=== PATIENT | male | born 1960 | race Two or more races ===

== ENCOUNTER 2024-01-13 15:14 | Inpatient (IN) ==
[2024-01-13] MEDS: SODIUM CHLORIDE 0.9% 1,000 ML IV STA (15:39)
[2024-01-13] MEDS: ACETAMINOPHEN 1,000 MG/100 ML VIAL IV STA (15:39)
[2024-01-13 15:48] LABS: iSTAT Creatinine 1.3 mg/dl (0.6-1.3); iSTAT Hemoglobin 13.3 g/dl (14.0-18.0); iSTAT Ionized Calcium 0.98 mmol/l (1.12-1.32)
--- NOTE | 2024-01-13 15:50 | Emergency Department Note ---
Impression & Plan Acute cholecystitis, Abdominal pain, Sepsis ED Provider Note Provider: Grzegorz Li MD DATE OF SERVICE: 01/13/2024 CHIEF COMPLAINT: Abdominal pain, decreased intake and output HISTORY OF PRESENT ILLNESS: Patient is a 63-year-old diabetic presenting referred from [facility] today to 6 days of not eating and drinking with abdominal discomfort particularly on the left side the abdomen and no bowel movement. States he is a lot of abdominal discomfort here for 3 to 4 weeks. Did fall about 2 months ago and injured his right hip and back was seen here at that time. Denies any other falls. Denies chest pain or shortness of breath. Febrile upon arrival but denies fever at home. No use of pain medications or [id number]-[id number] medications here. Denies any urinary symptoms. States he thought his symptoms might be related to his diabetic medicines. A week or 2 ago. Does not feel nauseous and denies vomiting at this time. Denies any history of abdominal surgeries. Minimal radiation to the left flank. Patient does endorse a little bit of dizziness. PAST MEDICAL HISTORY: As noted above MEDICATIONS: Reviewed home medications but not taking them currently SOCIAL HISTORY: Non-smoker PHYSICAL EXAM: GENERAL: alert and oriented in no acute distress on stretcher somewhat fatigued in appearance Head: normocephalic and atraumatic EYES: No injection, discharge or icterus. NECK: Trachea midline. ENT: Mucous membranes pink and moist. LUNGS: Airway patent. No retractions. Breath sounds clear HEART: Regular tachycardic rate and rhythm. No chest wall tenderness ABDOMEN: Soft mildly distended with mid upper to left-sided abdominal tenderness. No lower right tenderness and minimal right flank tenderness. SKIN: Acyanotic, warm, dry, without rashes EXTREMITIES: Without swelling, tenderness or deformity NEUROLOGICAL: No focal deficits. No aphasia. No facial droop or slurred speech. EK bpm sinus tachycardia. No PVC or PAC. No acute ST segment elevation with a QTc of 434. CONTINUOUS CARDIAC MONITORING: was ordered and showed a heart rate of 90s-120s bpm in sinus tachycardia to NSR Patient's laboratory studies and imaging reviewed. Differential includes Appendicitis, testicular torsion, infections, diverticulitis, UTI, obstruction, mesenteric ischemia, aortic pathology, inflammatory bowel disease, renal colic, PUD, pancreatitis, biliary pathology, hernia, volvulus, constipation, as well as other pathologies. IMPRESSION/MEDICAL DECISION MAKIN some IV fluids as well as IV Tylenol here for symptom control with a fever. Blood cultures and lactate ordered. Declines pain medications initially. Tenderness on the left side with fever and decreased intake obviously concerning for possible intra-abdominal pathology including not limited to diverticulitis, perforation, volvulus, constipation, obstruction, among others. Patient seems a little bit less likely to represent ureteral stone however. Particular blood work obtained for CT scan of the abdomen pelvis. Denies recent trauma. Denies chest pain or shortness of breath and lower suspicion of pulmonary or cardiac etiology. He is febrile and tachycardic upon arrival but also hypertensive. Not hypoxic. The patient appears he does not appear frankly meningitic and has good range of motion of his head and neck. Again denies nauseousness at this time. Blood work returns with very slight leukocytosis 1.2. Mild anemia at 10.5. Lactate normal at 1.5. Mild hyponatremia and hypokalemia. Slight anion gap of 14. Glucose somewhat elevated in the 250s. Slight LFT abnormality not severe. No lipase elevation. CT abdomen pelvis per radiology concerning for acute cholecystitis. Discussed with general surgery on-call. Received 2 and half liters normal saline for IV fluids. Zosyn for broad antimicrobial coverage was ordered. In discussion with general surgery they recommended medical admission and GI evaluation to exclude CBD stone. Discussed with the [facility] hospitalist. DIAGNOSIS: Acute cholecystitis, abdominal pain, sepsis DISPOSITION: Hospitalist will evaluate Patient was agreeable with this plan. Past Med/Surg History Medical History (Updated 01/13/24 @ 18:01 by Lesley Mcnulty PA-C) Obesity (BMI 30-39.9) Mild aortic valve stenosis HLD (hyperlipidemia) HTN (hypertension) T2DM (type 2 diabetes mellitus) Surgical History No pertinent past surgical history Social History (Updated 01/13/24 @ 17:53 by Lesley Mcnulty PA-C) Smoking Status: Never smoker Hx Alcohol Use: Yes Alcohol type: beer Hx Substance Use: No Preferred Language: Setswana Communication Ability: Effective Snapper On Required: No Beliefs That Will Affect Care: None Current Living Situation: Family Other Information That Helps Us Care for You: No Feels Safe at Home: Yes Safety Concerns: Feels Safe At This Time Assistive Devices: None Allergies Allergies Allergy/AdvReac Type Severity Reaction Status Date / Time No Known Drug Allergies Allergy Unknown Unknown Verified 01/13/24 16:36 Home Meds Home Medications Medication Instructions Recorded Confirmed atorvastatin 40 mg tablet 40 mg PO QAM 01/13/24 01/13/24 dulaglutide 3 mg/0.5 mL 3 mg subcut WK 01/13/24 01/13/24 subcutaneous pen injector (Trulicity) empagliflozin 10 mg tablet 10 mg PO QAM 01/13/24 01/13/24 (Jardiance) lisinopril 10 mg tablet 10 mg PO QAM 01/13/24 01/13/24 Results & Data (ED) Vital Signs Vital Signs - 24 hr 01/13/24 15:25 01/13/24 15:30 01/13/24 16:27 Temperature 39.4 C H Temperature Source Oral Pulse Rate 126 H 111 H Pulse Rate [Apical] 108 H Pulse Rate from SpO2 Sensor 111 H Pulse Rhythm [Apical] Regular Pulse Strength [Apical] Normal Respiratory Rate 20 27 H 29 H Respiratory Effort / Characteristics Non-Labored Spontaneous Non-Labored Spontaneous Respiratory Depth Normal Normal Respiratory Pattern Regular Regular Blood Pressure 174/89 H 155/69 H Blood Pressure [Right Arm] 192/124 H Blood Pressure Mean 117 97 Blood Pressure Mean [Right Arm] 146 Blood Pressure Position Lying Blood Pressure Position [Right Arm] Lying Pulse Oximetry 95 97 93 Oxygen Delivery Method Room Air Room Air Room Air Sepsis Recent Fever Within 48 Hours Yes Sepsis New/Unexplained Change in Mental Status N/A Sepsis Action Taken by Nursing Physician Notified 01/13/24 16:30 01/13/24 16:40 01/13/24 17:00 Temperature Temperature Source Pulse Rate 102 H 115 H 103 H Pulse Rate [Apical] Pulse Rate from SpO2 Sensor 111 H Pulse Rhythm [Apical] Pulse Strength [Apical] Respiratory Rate 28 H 28 H Respiratory Effort / Characteristics Respiratory Depth Respiratory Pattern Blood Pressure 157/71 H 193/95 H Blood Pressure [Right Arm] Blood Pressure Mean 99 127 Blood Pressure Mean [Right Arm] Blood Pressure Position Blood Pressure Position [Right Arm] Pulse Oximetry 94 94 Oxygen Delivery Method Room Air Room Air Sepsis Recent Fever Within 48 Hours Sepsis New/Unexplained Change in Mental Status Sepsis Action Taken by Nursing 01/13/24 17:38 Temperature Temperature Source Pulse Rate 102 H Pulse Rate [Apical] Pulse Rate from SpO2 Sensor Pulse Rhythm [Apical] Pulse Strength [Apical] Respiratory Rate 29 H Respiratory Effort / Characteristics Respiratory Depth Respiratory Pattern Blood Pressure 143/77 H Blood Pressure [Right Arm] Blood Pressure Mean 99 Blood Pressure Mean [Right Arm] Blood Pressure Position Blood Pressure Position [Right Arm] Pulse Oximetry 95 Oxygen Delivery Method Room Air Sepsis Recent Fever Within 48 Hours Sepsis New/Unexplained Change in Mental Status Sepsis Action Taken by Nursing Laboratory Data 01/13/24 15:30 01/13/24 15:30 Lab Results 01/13/24 01/13/24 01/13/24 Range/Units 15:30 15:36 16:05 WBC 11.28 H (4.8-10.8) K/ul RBC 4.71 (4.70-6.10) M/uL Hgb 12.5 L (14.0-18.0) g/dl POC Hgb 13.3 L (14.0-18.0) g/dl Hct 37.1 L (42.0-52.0) % POC Hct 39 L (42-52) % MCV 78.8 L (80.0-100.0) fL MCH 26.5 (25.0-34.0) pg MCHC 33.7 (32.0-36.0) g/dL RDW Std Deviation 38.7 (36.4-46.3) fL RDW Coeff of Edith 13.5 (11.5-14.5) % Plt Count 264 (130-400) K/uL MPV 10.7 (9.4-12.4) fL Immature Gran % (Auto) 0.5 % Neut % (Auto) 88.0 % Lymph % (Auto) 4.7 % [place] % (Auto) 6.7 % Eos % (Auto) 0.0 % Baso % (Auto) 0.1 % Neut # (Auto) 9.92 H (1.40-6.50) K/uL Lymph # (Auto) 0.53 L (1.20-3.40) K/uL [place] # (Auto) 0.76 H (0.11-0.59) K/uL Eos # (Auto) 0.00 (0.00-0.50) K/uL Baso # (Auto) 0.01 (0.00-0.20) K/uL Immature Gran # (Auto) 0.06 (0.01-0.20) K/uL PT 11.8 (9.0-12.0) Seconds INR 1.1 (0.9-1.1) POC Sodium 133 L (135-144) mmol/L Sodium 133 L (136-145) mmol/L POC Potassium 3.0 L (3.3-5.0) mmol/L Potassium 3.0 L (3.5-5.1) mmol/L POC Chloride 94 L (101-112) mmol/L Chloride 93 L (98-107) mmol/L Carbon Dioxide 26 (21-32) mmol/L POC Total CO2 25 (24-31) mmol/L Anion Gap 14 H (3-11) POC Anion Gap 18.0 (16-25) mmol/L POC BUN 20 H (7-18) mg/dl BUN 22 (6-23) mg/dl Creatinine 1.26 (0.6-1.4) mg/dl POC Creatinine 1.3 (0.6-1.3) mg/dl Est Cr Clr Drug Dosing 70.8 ml/min Est GFR ( Amer) 68.9 ml/min Est GFR (Non-Af Amer) 59.5 ml/min BUN/Creatinine Ratio 17.5 (10-20) Glucose 253 H (70-99(Fasting)) mg/dl POC Glucose (other) 269 H (70-99) mg/dl Lactate 1.5 (0.4-2.0) mmol/L Calcium 8.9 (8.6-10.3) mg/dl POC Ioniz Calcium [place] 0.98 L (1.12-1.32) mmol/l Total Bilirubin 1.2 H (0.2-1.0) mg/dl AST 52 H (13-39) U/L ALT 63 H (7-52) U/L Alkaline Phosphatase 186 H (34-104) U/L Troponin I High Sens 12.4 (0-20) pg/ml Total Protein 8.3 (6.0-8.3) gm/dl Albumin 3.8 (3.4-5.0) gm/dl Globulin 4.5 H (2.5-4.0) gm/dl Albumin/Globulin Ratio 0.8 L (0.9-2) Lipase 17 (11-82) U/L Procalcitonin 1.49 H (0-0.5) ng/ml Urine Color [place] Urine Appearance Cloudy A (Clear) Urine pH 5.5 (4.5-7.5) Ur Specific [place] 1.026 (1.000-1.030) Urine Protein 3+ H (Negative) Urine Glucose (UA) Trace H (Negative) Urine Ketones 1+ H (Negative) Urine Blood Negative (Negative) Urine Nitrite Negative (Negative) Urine Bilirubin 1+ H (Negative) Urine Urobilinogen Positive H (Negative) Ur Leukocyte Esterase Trace H (Negative) Urine WBC (Auto) 1-5 (0-5) /hpf Urine RBC (Auto) 0-4 (0-4) /hpf U Hyaline Cast (Auto) 1-5 (0-5) /lpf U Epithel Cells (Auto) 0-5 (0-5) /lpf Urine Bacteria (Auto) 2+ H (Negative) Ur Renal Epithelial Cell Not Reportable Granular Casts 1-5 H (0) /lpf Urine Yeast Not Reportable SARS-CoV-2, RNA, NAAT (NEGATIVE) 01/13/24 Range/Units 17:25 WBC (4.8-10.8) K/ul RBC (4.70-6.10) M/uL Hgb (14.0-18.0) g/dl POC Hgb (14.0-18.0) g/dl Hct (42.0-52.0) % POC Hct (42-52) % MCV (80.0-100.0) fL MCH (25.0-34.0) pg MCHC (32.0-36.0) g/dL RDW Std Deviation (36.4-46.3) fL RDW Coeff of Edith (11.5-14.5) % Plt Count (130-400) K/uL MPV (9.4-12.4) fL Immature Gran % (Auto) % Neut % (Auto) % Lymph % (Auto) % [place] % (Auto) % Eos % (Auto) % Baso % (Auto) % Neut # (Auto) (1.40-6.50) K/uL Lymph # (Auto) (1.20-3.40) K/uL [place] # (Auto) (0.11-0.59) K/uL Eos # (Auto) (0.00-0.50) K/uL Baso # (Auto) (0.00-0.20) K/uL Immature Gran # (Auto) (0.01-0.20) K/uL PT (9.0-12.0) Seconds INR (0.9-1.1) POC Sodium (135-144) mmol/L Sodium (136-145) mmol/L POC Potassium (3.3-5.0) mmol/L Potassium (3.5-5.1) mmol/L POC Chloride (101-112) mmol/L Chloride (98-107) mmol/L Carbon Dioxide (21-32) mmol/L POC Total CO2 (24-31) mmol/L Anion Gap (3-11) POC Anion Gap (16-25) mmol/L POC BUN (7-18) mg/dl BUN (6-23) mg/dl Creatinine (0.6-1.4) mg/dl POC Creatinine (0.6-1.3) mg/dl Est Cr Clr Drug Dosing ml/min Est GFR ( Amer) ml/min Est GFR (Non-Af Amer) ml/min BUN/Creatinine Ratio (10-20) Glucose (70-99(Fasting)) mg/dl POC Glucose (other) (70-99) mg/dl Lactate (0.4-2.0) mmol/L Calcium (8.6-10.3) mg/dl POC Ioniz Calcium [place] (1.12-1.32) mmol/l Total Bilirubin (0.2-1.0) mg/dl AST (13-39) U/L ALT (7-52) U/L Alkaline Phosphatase (34-104) U/L Troponin I High Sens (0-20) pg/ml Total Protein (6.0-8.3) gm/dl Albumin (3.4-5.0) gm/dl Globulin (2.5-4.0) gm/dl Albumin/Globulin Ratio (0.9-2) Lipase (11-82) U/L Procalcitonin (0-0.5) ng/ml Urine Color Urine Appearance (Clear) Urine pH (4.5-7.5) Ur Specific [place] (1.000-1.030) Urine Protein (Negative) Urine Glucose (UA) (Negative) Urine Ketones (Negative) Urine Blood (Negative) Urine Nitrite (Negative) Urine Bilirubin (Negative) Urine Urobilinogen (Negative) Ur Leukocyte Esterase (Negative) Urine WBC (Auto) (0-5) /hpf Urine RBC (Auto) (0-4) /hpf U Hyaline Cast (Auto) (0-5) /lpf U Epithel Cells (Auto) (0-5) /lpf Urine Bacteria (Auto) (Negative) Ur Renal Epithelial Cell Granular Casts (0) /lpf Urine Yeast SARS-CoV-2, RNA, NAAT NEGATIVE (NEGATIVE) Administered Medications Potassium Chloride (K Jone / Wtr) 10 meq in 100 mls @ 100 mls/hr IV Q1H [place] Stop: 01/14/24 00:14 Last Admin: 01/13/24 20:22 Dose: 100 mls/hr Documented By: RAMANA Potassium Chloride/Sodium Chloride (Normal Saline W/20 Meq Kcl) 20 meq in 1,000 mls @ 75 mls/hr IV .[id number] [facility]; Protocol Stop: 02/12/24 20:14 Last Admin: 01/13/24 20:22 Dose: 75 mls/hr Documented By: RAMANA Insulin Glargine (Lantus Per Unit Charge) 10 units SQ BID [place] Stop: 02/12/24 20:59 Last Admin: 01/13/24 21:01 Dose: 10 units Documented By: RAMANA Co-signed By: SARAH Discontinued Medications Sodium Chloride (Nss) 1,000 mls @ 999 mls/hr IV .Q1H1M STA Stop: 01/13/24 16:31 Last Infusion: 01/13/24 19:45 Dose: Infused Documented By: Admin: 01/13/24 15:39 Dose: 999 mls/hr Documented By: ANA LAURA Acetaminophen (Ofirmev) 1,000 mg in 100 mls @ 400 mls/hr IV NOW STA Stop: 01/13/24 15:46 Last Infusion: 01/13/24 16:44 Dose: Infused Documented By: ANA LAURA Admin: 01/13/24 15:39 Dose: 400 mls/hr Documented By: ANA LAURA Sodium Chloride (Nss) 1,000 mls @ 999 mls/hr IV .Q1H1M ONE Stop: 01/13/24 17:25 Last Infusion: 01/13/24 17:46 Dose: Infused Documented By: ANA LAURA Admin: 01/13/24 16:38 Dose: 999 mls/hr Documented By: ANA LAURA Sodium Chloride (Nss) 500 mls @ 999 mls/hr IV .Q31M ONE Stop: 01/13/24 16:55 Last Infusion: 01/13/24 19:45 Dose: Infused Documented By: Admin: 01/13/24 17:45 Dose: 999 mls/hr Documented By: ANA LAURA Piperacillin Sod/Tazobactam Sod (Zosyn) 4.5 gm in 100 mls @ 200 mls/hr IV NOW ONE Stop: 01/13/24 16:54 Last Infusion: 01/13/24 17:08 Dose: Infused Documented By: Admin: 01/13/24 16:35 Dose: 200 mls/hr Documented By: ANA LAURA Ioversol (Optiray 320 500ml) 89 ml IV ONCE ONE Stop: 01/13/24 16:13 Last Admin: 01/13/24 16:13 Dose: 89 ml Documented By: ALEYDA Imaging Data Radiologist's Impression: Abdomen/Pelvis CT 01/13/24 15:[address] WITH IV CONTRAST CT DOSE: 1744.2 mGy.cm HISTORY: Left abd pain, fever TECHNIQUE: Multiaxial CT images of the abdomen and pelvis were performed following the use of intravenous contrast. A dose lowering technique was utilized adhering to the principles of ALARA. COMPARISON STUDY: None. FINDINGS: Bibasilar linear densities consistent with subsegmental atelectasis. No pneumoperitoneum. No pneumatosis. No acute fractures. The gallbladder is distended and and contains a few small gallstones. There is significant gallbladder wall thickening with pericholecystic inflammatory change. Therefore, these findings are consistent with acute cholecystitis. Focal irregular hypodensity within the liver adjacent to the gallbladder fossa measuring 2.7 cm. This could represent edema related to the acute cholecystitis versus focal fat. The pancreas, spleen, and adrenal glands are unremarkable. Normal right kidney. 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 No hydronephrosis. Calcified plaque within the normal caliber abdominal aorta. The main portal vein is patent. No retroperitoneal or pelvic lymphadenopathy. The bladder is unremarkable. The prostate gland is mildly enlarged. Colonic diverticulosis. No evidence for acute diverticulitis. Normal appendix. Mild thickening within the hepatic flexure of the colon is likely reactive to the adjacent gallbladder inflammation. Otherwise, no bowel wall thickening or obstruction. IMPRESSION: 1. Above findings consistent with acute cholecystitis. Surgical consultation recommended. 2. Additional findings as described above. ACT 112: Negative or not required by law. Electronically signed by: Tomas Knapp M.D. 01/13/2024 4:44 PM Discharge Plan Visit Data Chief Complaint: Abdominal Pain Stated Complaint: AB PAIN, FEVER ED Provider: Grzegorz Li Discharge Problem: Acute cholecystitis, Abdominal pain, Sepsis Patient Disposition: Admitted As Inpatient Condition: Fair Discharge Instructions Interventions: ED Discharge Assessment Last Done: 01/13/24 18:40
[2024-01-13 16:02] LABS: Basophils # (auto) 0.01 K/uL (0.00-0.20); Basophils % (auto) 0.1 %; Hematocrit (blood only) 37.1 % (42.0-52.0); Hemoglobin 12.5 g/dl (14.0-18.0); Immature Granulocytes # (auto) 0.06 K/uL (0.01-0.20); Immature Granulocytes % (auto) 0.5 %; Lymphocytes # (auto) 0.53 K/uL (1.20-3.40); Lymphocytes % (auto) 4.7 %; Mean Corpuscular Hemoglobin 26.5 pg (25.0-34.0); Mean Corpuscular Hgb Conc 33.7 g/dL (32.0-36.0); Mean Corpuscular Volume 78.8 fL (80.0-100.0); Mean Platelet Volume 10.7 fL (9.4-12.4); Monocytes # (auto) 0.76 K/uL (0.11-0.59); Monocytes % (auto) 6.7 %; Neutrophils # (auto) 9.92 K/uL (1.40-6.50); Platelet Count 264 K/uL (130-400); RDW Coefficient of Variation 13.5 % (11.5-14.5); RDW Standard Deviation 38.7 fL (36.4-46.3); Red Blood Count 4.71 M/uL (4.70-6.10); White Blood Count 11.28 K/ul (4.8-10.8)
[2024-01-13 16:07] LABS: Albumin Globulin Ratio 0.8 (0.9-2); Albumin Level 3.8 gm/dl (3.4-5.0); BUN Creatinine Ratio 17.5 (10-20); Bilirubin,Total 1.2 mg/dl (0.2-1.0); Calcium 8.9 mg/dl (8.6-10.3); Creatinine Clr Calc Pharmacy 70.8 ml/min; Est GFR (African American) 68.9 ml/min; Est GFR (Non-African American) 59.5 ml/min; Globulin 4.5 gm/dl (2.5-4.0); Total Protein 8.3 gm/dl (6.0-8.3)
[2024-01-13 16:12] LABS: Troponin I High Sensitivity 12.4 pg/ml (0-20)
[2024-01-13] MEDS: OPTIRAY 320 500ml IV ONE (16:13)
[2024-01-13 16:16] LABS: INR 1.1 (0.9-1.1); Prothrombin Time 11.8 Seconds (9.0-12.0)
[2024-01-13 16:32] LABS: Appearance Urine Cloudy (Clear); Blood Urine Negative (Negative); Color Urine Orange; Glucose Urine UA Trace (Negative); Ketones Urine 1+ (Negative); Leukocyte Esterase Urine Trace (Negative); Nitrite Urine Negative (Negative); Protein Urine 3+ (Negative); RBC Urine Automated 0-4 /hpf (0-4); Specific Gravity Urine 1.026 (1.000-1.030); Urobilinogen Urine Positive (Negative); pH Urine 5.5 (4.5-7.5)
[2024-01-13 16:33] LABS: Bilirubin Urine 1+ (Negative)
[2024-01-13] MEDS: PIPERACILLIN/TAZOBACTAM 4.5 GM/100 ML BAG IV ONE (16:35)
[2024-01-13] MEDS: SODIUM CHLORIDE 0.9% 1,000 ML IV ONE (16:38)
[2024-01-13 16:46] LABS: Epithelial Cell Urine Auto 0-5 /lpf (0-5)
--- NOTE | 2024-01-13 16:46 | CT Scan Report ---
ABDOMEN AND PELVIS CT WITH IV CONTRAST CT DOSE: 1744.2 mGy.cm HISTORY: Left abd pain, fever TECHNIQUE: Multiaxial CT images of the abdomen and pelvis were performed following the use of intrave nous contrast. A dose lowering technique was utilized adhering to the principles of ALARA. COMPARISON STUDY: None. FINDINGS: Bibasilar linear densities consistent with subsegmental atelectasis. No pneumoperitoneum. N o pneumatosis. No acute fractures. The gallbladder is distended and and contains a few small gallston es. There is significant gallbladder wall thickening with pericholecystic inflammatory change. Theref ore, these findings are consistent with acute cholecystitis. Focal irregular hypodensity within the l iver adjacent to the gallbladder fossa measuring 2.7 cm. This could represent edema related to the ac danae cholecystitis versus focal fat. The pancreas, spleen, and adrenal glands are unremarkable. Normal right kidney. 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 No hydronephrosi s. Calcified plaque within the normal caliber abdominal aorta. The main portal vein is patent. No ret roperitoneal or pelvic lymphadenopathy. The bladder is unremarkable. The prostate gland is mildly enl arged. Colonic diverticulosis. No evidence for acute diverticulitis. Normal appendix. Mild thickening within the hepatic flexure of the colon is likely reactive to the adjacent gallbladder inflammation. Otherwise, no bowel wall thickening or obstruction. IMPRESSION: 1. Above findings consistent with acute cholecystitis. Surgical consultation recommended. 2. Additional findings as described above. ACT 112: Negative or not required by law. Electronically signed by: Tomas Knapp M.D. 01/13/2024 4:44 PM
[2024-01-13 16:49] LABS: Bacteria Urine Automated 2+ (Negative)
--- NOTE | 2024-01-13 17:02 | Electrocardiogram Report ---
Test Reason : Blood Pressure : / mmHG Vent. Rate : 126 BPM Atrial Rate : 126 BPM P-R Int : 152 ms QRS Dur : 088 ms QT Int : 300 ms P-R-T Axes : 029 -22 030 degrees QTc Int : 434 ms Sinus tachycardia Otherwise normal ECG No previous ECGs available Confirmed by Eliud Resendiz ([id number]) on 01/13/2024 5:02:13 PM Referred By: Confirmed By:Deejay Resendiz
[2024-01-13] MEDS: SODIUM CHLORIDE 0.9% 500 ML IV ONE (17:45)
--- NOTE | 2024-01-13 17:55 | History & Physical Report ---
Date of Service January 13, 2024 Assessment & Plan (1) Sepsis: (2) Acute cholecystitis: (3) Hypokalemia: (4) T2DM (type 2 diabetes mellitus): (5) HTN (hypertension): (6) HLD (hyperlipidemia): (7) Obesity (BMI 30-39.9): Plan This is a 63 yr old M who has a significant PMH of T2DM, HTN, HLD and mild aortic stenosis who presents to ED secondary to abdominal pain x 3 weeks. Sepsis Acute cholecystitis Transaminitis Abnormal urinalysis--rule out UTI Normal lactate, elevated procalcitonin --CT abd/pelvis: 1. Above findings consistent with acute cholecystitis. Surgical consultation recommended. IVF NS + 20meq KCL 75cc/hr GI is consulted for possible ERCP Surgery is consulted as well Pain control with IV tylenol mild-mod pain and IV dilaudid for severe pain Trend LFTs Hold statin Blood, urine cultures pending Hyponatremia Hypochloremia Hypokalemia Replace electrolytes as needed DM II Hold home regimen Utilize insulin while hospitalized Monitor BGs a1c 8.7 on 12/02/23 given sepsis and uncontrolled T2DM with consult glycemic pharmacy HTN chronic, unstable BP elevated in ED likely 2/2 pain monitor continue lisinopril with parameters HLD chronic stable hold statin in setting of transaminitis Morbid obesity, BMI 35.1 encourage diet/lifestyle modifications DVT ppx: SCDS for now, consider chemical prophylaxis once timing of surgery determined FULL CODE PCP: Dr. Burkett Pt was seen and examined in collaboration with Dr. Griffith, please see addendum A total of 76 minutes was spent coordinating, documenting, and providing care for this patient excluding time spent in the performance of separately billed services. This included personally viewing all current laboratories and imaging studies, medication reconciliation, outpatient chart review, and discussion with specialists. History of Present Illness Chief Complaint: Abdominal pain x 3-4 weeks. Primary Care Provider: Marcial Burkett MD This is a 63 yr old M who has a significant PMH of T2DM, HTN, HLD and mild aortic stenosis who presents to ED secondary to abdominal pain x 3 weeks. Pain has been coming and going. He states pain is located all over the abdomen. He is unable to pinpoint if anything makes it worse/better. He hasn't ate for 6 days. The food/water does not make it any worse or better. Sx tend to be worse with movement. He denies radiation of pain. Currently pain is 8/10. He had one episode of vomiting, but otherwise denies nausea. He reports one day of being chilled but denies any documented fever at home. He denies URI sx, chest pain, sob, melena, hematochezia, dysuria, increased urg/freq with urination. In ED patient was hemodynamically stable. He did meet sepsis criteria secondary to fever with temperature 39.4 and he was tachycardic. His lab work was notable for WBC 11.2k, H&H 12.5 and 37.1, sodium 133, K3.0, anion gap 14, BUN 22, creatinine 1.26, glucose 253 and transaminitis with LFTs notable for total bilirubin 1.2, AST 52, ALT 63, alk phos 186 and elevated procalcitonin at 1.49. Urinalysis was also notable for bacteria. In ED he received IV fluid resusc itation as well as IV Zosyn. CT abdomen pelvis concerning for acute cholecystitis. Allergies Allergy/AdvReac Type Severity Reaction Status Date / Time No Known Drug Allergies Allergy Unknown Unknown Verified 01/13/24 16:36 Home Medications Medication Instructions Recorded Confirmed Type atorvastatin 40 mg tablet 40 mg PO QAM 01/13/24 01/13/24 History dulaglutide 3 mg/0.5 mL 3 mg subcut WK 01/13/24 01/13/24 History subcutaneous pen injector (Trulicity) empagliflozin 10 mg tablet 10 mg PO QAM 01/13/24 01/13/24 History (Jardiance) lisinopril 10 mg tablet 10 mg PO QAM 01/13/24 01/13/24 History Past Med/Surg History Medical History Obesity (BMI 30-39.9) Mild aortic valve stenosis HLD (hyperlipidemia) HTN (hypertension) T2DM (type 2 diabetes mellitus) Surgical History No pertinent past surgical history Social History Smoking Status: Never smoker Hx Alcohol Use: Yes Alcohol type: beer Hx Substance Use: No Preferred Language: [place] Communication Ability: Effective Check Cashier Required: No Beliefs That Will Affect Care: None Current Living Situation: Family Other Information That Helps Us Care for You: No Feels Safe at Home: Yes Safety Concerns: Feels Safe At This Time Assistive Devices: None Review of Systems Review of Systems: All systems reviewed & are unremarkable except as noted in HPI & below Physical Exam Physical Exam: please refer to Dr. Griffith addendum for physical exam findings. Results & Data Results & Data Vital Signs (Past 12 Hours) Vital Signs Temp Pulse Pulse Resp BP BP Pulse Ox 01/13/24 17:38 102 H 29 H 143/77 H 95 01/13/24 17:00 103 H 28 H 193/95 H 94 01/13/24 16:40 115 H 01/13/24 16:30 102 H 28 H 157/71 H 94 01/13/24 16:27 111 H 29 H 155/69 H 93 01/13/24 15:30 108 H 27 H 192/124 H 97 01/13/24 15:25 39.4 C H 126 H 20 174/89 H 95 O2 Del Method 01/13/24 17:38 Room Air 01/13/24 17:00 Room Air 01/13/24 16:40 01/13/24 16:30 Room Air 01/13/24 16:27 Room Air 01/13/24 15:30 Room Air 01/13/24 15:25 Room Air Diagnostic Findings Abdomen/Pelvis CT 01/13/24 15:[address] WITH IV CONTRAST CT DOSE: 1744.2 mGy.cm HISTORY: Left abd pain, fever TECHNIQUE: Multiaxial CT images of the abdomen and pelvis were performed following the use of intravenous contrast. A dose lowering technique was utilized adhering to the principles of ALARA. COMPARISON STUDY: None. FINDINGS: Bibasilar linear densities consistent with subsegmental atelectasis. No pneumoperitoneum. No pneumatosis. No acute fractures. The gallbladder is distended and and contains a few small gallstones. There is significant gallbladder wall thickening with pericholecystic inflammatory change. Therefore, these findings are consistent with acute cholecystitis. Focal irregular hypodensity within the liver adjacent to the gallbladder fossa measuring 2.7 cm. This could represent edema related to the acute cholecystitis versus focal fat. The pancreas, spleen, and adrenal glands are unremarkable. Normal right kidney. 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 No hydronephrosis. Calcified plaque within the normal caliber abdominal aorta. The main portal vein is patent. No retroperitoneal or pelvic lymphadenopathy. The bladder is unremarkable. The prostate gland is mildly enlarged. Colonic diverticulosis. No evidence for acute diverticulitis. Normal appendix. Mild thickening within the hepatic flexure of the colon is likely reactive to the adjacent gallbladder inflammation. Otherwise, no bowel wall thickening or obstruction. IMPRESSION: 1. Above findings consistent with acute cholecystitis. Surgical consultation recommended. 2. Additional findings as described above. ACT 112: Negative or not required by law. Electronically signed by: Tomas Knapp M.D. 01/13/2024 4:44 PM Medications Administered Medication List Discontinued Medications Sodium Chloride (Nss) 1,000 mls @ 999 mls/hr IV .Q1H1M STA Stop: 01/13/24 16:31 Last Admin: 01/13/24 15:39 Dose: 999 mls/hr Documented By: ANA LAURA Acetaminophen (Ofirmev) 1,000 mg in 100 mls @ 400 mls/hr IV NOW STA Stop: 01/13/24 15:46 Last Infusion: 01/13/24 16:44 Dose: Infused Documented By: ANA LAURA Admin: 01/13/24 15:39 Dose: 400 mls/hr Documented By: ANA LAURA Sodium Chloride (Nss) 1,000 mls @ 999 mls/hr IV .Q1H1M ONE Stop: 01/13/24 17:25 Last Infusion: 01/13/24 17:46 Dose: Infused Documented By: ANA LAURA Admin: 01/13/24 16:38 Dose: 999 mls/hr Documented By: ANA LAURA Sodium Chloride (Nss) 500 mls @ 999 mls/hr IV .Q31M ONE Stop: 01/13/24 16:55 Last Admin: 01/13/24 17:45 Dose: 999 mls/hr Documented By: ANA LAURA Piperacillin Sod/Tazobactam Sod (Zosyn) 4.5 gm in 100 mls @ 200 mls/hr IV NOW ONE Stop: 01/13/24 16:54 Last Infusion: 01/13/24 17:08 Dose: Infused Documented By: Admin: 01/13/24 16:35 Dose: 200 mls/hr Documented By: ANA LAURA Ioversol (Optiray 320 500ml) 89 ml IV ONCE ONE Stop: 01/13/24 16:13 Last Admin: 01/13/24 16:13 Dose: 89 ml Documented By: ALEYDA ECG Additional Comments: I have independently reviewed and interpreted patient's admitting EKG which revealed: sinus tach 126 bpm, no st or t wave change COVID-19 Results Results COVID-19 Adm Lab Results: RBC 4.09 M/uL (4.70-6.10) L 01/14/24 WBC 10.18 K/ul (4.8-10.8) 01/14/24 Hgb 11.1 g/dl (14.0-18.0) L 01/14/24 Hct 31.9 % (42.0-52.0) L 01/14/24 Plt Count 229 K/uL (130-400) 01/14/24 Neutrophils (%) (Auto) 83.9 % 01/14/24 Lymphocytes (%) (Auto) 5.4 % 01/14/24 Monocytes # (Auto) 1.01 K/uL (0.11-0.59) H 01/14/24 Eosinophils # (Auto) 0.01 K/uL (0.00-0.50) 01/14/24 Immature Granulocyte % (Auto) 0.5 % 01/14/24 Neutrophils # (Auto) 8.54 K/uL (1.40-6.50) H 01/14/24 Lymphocytes # (Auto) 0.55 K/uL (1.20-3.40) L 01/14/24 Monocytes # (Auto) 1.01 K/uL (0.11-0.59) H 01/14/24 Eosinophils # (Auto) 0.01 K/uL (0.00-0.50) 01/14/24 Basophils # (Auto) 0.02 K/uL (0.00-0.20) 01/14/24 Immature Granulocyte # (Auto) 0.05 K/uL (0.01-0.20) 4 Na 135 mmol/L (136-145) L 01/14/24 K 3.2 mmol/L (3.5-5.1) L 01/14/24 Cl 101 mmol/L (98-107) 01/14/24 CO2 24 mmol/L (21-32) 01/14/24 Anion Gap 10 (3-11) 01/14/24 BUN 17 mg/dl (6-23) 01/14/24 Creatinine 1.12 mg/dl (0.6-1.4) 01/14/24 BUN/Creatinine Ratio 15.2 (10-20) 01/14/24 Glucose Level 172 mg/dl (70-99(Fasting)) H 01/14/24 Ca 7.9 mg/dl (8.6-10.3) L 01/14/24 Total Bilirubin 1.3 mg/dl (0.2-1.0) H 01/14/24 AST/SGOT 49 U/L (13-39) H 01/14/24 ALT/SGPT 64 U/L (7-52) H 01/14/24 Alkaline Phosphatase 175 U/L (34-104) H 01/14/24 Total Protein 6.8 gm/dl (6.0-8.3) 01/14/24 Albumin 3.1 gm/dl (3.4-5.0) L 01/14/24 Globulin 3.7 gm/dl (2.5-4.0) 01/14/24 Albumin/Globulin Ratio 0.8 (0.9-2) L 01/14/24 Procalcitonin 1.49 ng/ml (0-0.5) H 01/13/24 INR 1.1 (0.9-1.1) 01/13/24 SARS-CoV-2, RNA, NAAT NEGATIVE (NEGATIVE) 01/13/24 Code Status & VTE Plan Code Status FULL CODE VTE Prophylaxis Plan VTE Prophylaxis will be ordered: Yes Supervising Physician Co-Signing Physician Notes Patient is a 62-year-old male with history of diabetes mellitus, hypertension, hyperlipidemia and other medical problems presents with history of ongoing abdominal pain since 3 to 4 weeks duration. He reports associated chills, nausea and vomiting few days ago but currently resolved. He states his abdominal pain is predominantly upper quadrant, sometimes towards the left. Denies any radiating pain, noticed worsening with any movement but unrelated to food intake. His appetite has been poor and was not able to eat especially since last 6 days. Please review HPI for complete details of presentation. I personally reviewed blood work and imaging studies. Physical Exam: Vitals signs as noted above General Appearance:Obese, no apparent distress Head: normocephalic, Atraumatic Eyes: normal inspection, EOMI Neck: supple, Trachea midline Respiratory/Chest: Normal breath sounds, CTA, No accessory muscle use Cardiovascular: S1, S2, No murmur Abdomen/GI:Soft, RUQ tender, distended, Bowel sounds present Extremities/Musculoskeletal:normal inspection, 1+ Pedal edema Neurologic/Psych:AAOX3, grossly no focal neurological deficits Skin: normal color, warm Sepsis Acute cholecystitis Transaminitis Abnormal urinalysis--rule out UTI Normal lactate, elevated procalcitonin Agree with IV fluids, Zosyn, bowel rest GI is consulted for possible ERCP Surgery is consulted as well Pain control Trend LFTs Hold statin Blood, urine cultures pending Hyponatremia Hypochloremia Hypokalemia Replace electrolytes as needed DM II Hold home regimen Utilize insulin while hospitalized Monitor BGs Check HbA1C I personally interviewed and examined at bedside. Patient's care is coordinated with Lesley Mcnulty PA-C. I have reviewed the advanced practitioner's documentation, and I agree with, and take responsibility for that plan of care. Please refer to the documentation above for details of patient's presentation and for discussion of other issues. I spent a total [id number] coordinating, documenting, and providing care for this patient excluding time spent in the performance of separately billed services.
[2024-01-13] MEDS ORDERED: GLUCAGON FOR INJ 1 MG VIAL SQ PRN (18:59)
[2024-01-13] MEDS ORDERED: CARBOHYDRATES FOR HYPOGLYCEMIA PO PRN (18:59)
[2024-01-13] MEDS ORDERED: GLUCOSE 10 TAB/TUBE PO PRN (18:59)
[2024-01-13] MEDS ORDERED: PHARMACY GLYCEMIC MGMT CONSULT PRN (18:59)
[2024-01-13] MEDS ORDERED: ONDANSETRON INJ 2 MG/ML 2 ML VIAL IV PRN (18:59)
[2024-01-13] MEDS ORDERED: DEXTROSE 50% 50 ML SYRINGE IV PRN (18:59)
[2024-01-13] MEDS ORDERED: GLUCOSE 40% GEL 15 GM TUBE PO PRN (18:59)
--- NOTE | 2024-01-13 19:04 | Surgery Consultation ---
Date of Consultation January 13, 2024 Assessment & Plan (1) Acute cholecystitis: likely CBD stones will need GI evaluation IVF/IV abx will need lap tali after duct cleared History of Present Illness Attending Physician: Joel Griffith MD History of Present Illness This is a 63YO to ED with abdominal pain for weeks. The pain is mainly right christopher and has come and gone, worse tonight. He has had nausea and vomited. A CT show likely acute cholecystitis. Allergies Allergy/AdvReac Type Severity Reaction Status Date / Time No Known Drug Allergies Allergy Unknown Unknown Verified 01/13/24 16:36 Home Medications Medication Instructions Recorded Confirmed Type atorvastatin 40 mg tablet 40 mg PO QAM 01/13/24 01/13/24 History dulaglutide 3 mg/0.5 mL 3 mg subcut WK 01/13/24 01/13/24 History subcutaneous pen injector (Trulicity) empagliflozin 10 mg tablet 10 mg PO QAM 01/13/24 01/13/24 History (Jardiance) lisinopril 10 mg tablet 10 mg PO QAM 01/13/24 01/13/24 History Patient History Medical History (Updated 01/13/24 @ 18:01 by Lesley Mcnulty PA-C) Obesity (BMI 30-39.9) Mild aortic valve stenosis HLD (hyperlipidemia) HTN (hypertension) T2DM (type 2 diabetes mellitus) Surgical History No pertinent past surgical history Social History (Updated 01/13/24 @ 17:53 by Lesley Mcnulty PA-C) Smoking Status: Never smoker Hx Alcohol Use: No Hx Substance Use: No Preferred Language: [place] Feels Safe at Home: Yes Review of Systems Constitutional: + chills and + anorexia; no fever Eyes: no problem reported Ear, Nose, Mouth, Throat: no problem reported Respiratory: no cough and no dyspnea Cardiovascular: no chest pain Gastrointestinal: + abdominal pain, + nausea and + vomitin g; no change in bowel habits Genitourinary: no dysuria Musculoskeletal: no back pain Integumentary: no problem reported Neurologic: no localized weakness and no generalized weakness Psychiatric: no behavioral changes Endocrine: no fatigue Hematologic / Lymphatic: no easy bleeding and no easy bruising Physical Exam Constitutional: WD/WN, vitals as above + morbidly obese Eyes: PERRL, conjunctivae normal, anicteric sclerae ENMT: external ear and nose normal, oropharynx normal Neck: trachea midline Respiratory: normal respiratory effort, lungs clear to auscultation Cardiovascular: RRR, no murmur, no edema Gastrointestinal (Abdomen): Inspection/Auscultation: abdomen normal to inspection and normal bowel sounds; abdomen not distended Percussion/Palpation: + abdomen tender and abdomen soft; no guarding and abdomen not rigid Musculoskeletal: Head/Neck/Chest: normocephalic and head atraumatic Skin: no rashes, warm and dry Results & Data Vital Signs (Past 12 Hours) Vital Signs Temp Pulse Pulse Resp BP BP Pulse Ox 01/13/24 18:40 01/13/24 18:30 103 H 31 H 174/98 H 96 01/13/24 18:16 37 C 01/13/24 18:00 104 H 26 H 158/94 H 96 01/13/24 17:38 102 H 29 H 143/77 H 95 01/13/24 17:00 103 H 28 H 193/95 H 94 01/13/24 16:40 115 H 01/13/24 16:30 102 H 28 H 157/71 H 94 01/13/24 16:27 111 H 29 H 155/69 H 93 01/13/24 15:30 108 H 27 H 192/124 H 97 01/13/24 15:25 39.4 C H 126 H 20 174/89 H 95 O2 Del Method 01/13/24 18:40 Room Air 01/13/24 18:30 Room Air 01/13/24 18:16 01/13/24 18:00 Room Air 01/13/24 17:38 Room Air 01/13/24 17:00 Room Air 01/13/24 16:40 01/13/24 16:30 Room Air 01/13/24 16:27 Room Air 01/13/24 15:30 Room Air 01/13/24 15:25 Room Air Diagnostic Findings ABDOMEN AND PELVIS CT WITH IV CONTRAST CT DOSE: 1744.2 mGy.cm HISTORY: Left abd pain, fever TECHNIQUE: Multiaxial CT images of the abdomen and pelvis were performed fol lowing the use of intravenous contrast. A dose lowering technique was utilized adhering to the principles of ALARA. COMPARISON STUDY: None. FINDINGS: Bibasilar linear densities consistent with subsegmental atelectasis. No pneumoperitoneum. No pneumatosis. No acute fractures. The gallbladder is distended and and contains a few small gallstones. There is significant gallbladder wall thickening with pericholecystic inflammatory change. Therefore, these findings are consistent with acute cholecystitis. Focal irregular hypodensity within the liver adjacent to the gallbladder fossa measuring 2.7 cm. This could represent edema related to the acute cholecystitis versus focal fat. The pancreas, spleen, and adrenal glands are unremarkable. Normal right kidney. 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 No hydronephrosis. Calcified plaque within the normal caliber abdominal aorta. The main portal vein is patent. No retroperitoneal or pelvic lymphadenopathy. The bladder is unremarkable. The prostate gland is mildly enlarged. Colonic diverticulosis. No evidence for acute diverticulitis. Normal appendix. Mild thickening within the hepatic flexure of the colon is likely reactive to the adjacent gallbladder inflammation. Otherwise, no bowel wall thickening or obstruction. IMPRESSION: 1. Above findings consistent with acute cholecystitis. Surgical consultation r ecommended. 2. Additional findings as described above.
[2024-01-13] MEDS ORDERED: Nursing to Pharmacy Communication SCH (19:30)
[2024-01-13] MEDS: POTASSIUM CHLORIDE / WTR 10 MEQ/100 ML PLCT IV SCH (20:22)
[2024-01-13] MEDS: NSS + 20MEQ KCL 20 MEQ/1,000 ML BAG IV SCH (20:22)
[2024-01-13] MEDS ORDERED: INSULIN ASPART PER UNIT CHARGE SC SCH (21:00)
[2024-01-13] MEDS: LANTUS PER UNIT CHARGE SQ SCH (21:01)
[2024-01-13] MEDS: PIPERACILLIN/TAZOBACTAM 4.5 GM in DEXTROSE 5% MINI-B 100 ML IV SCH (22:29)
[2024-01-14] MEDS: INSULIN ASPART PER UNIT CHARGE SC SCH (00:41)
[2024-01-14] MEDS: ACETAMINOPHEN 1,000 MG/100 ML VIAL IV PRN (03:57)
[2024-01-14 03:58] LABS: A calco-baum cmplx NotReported Not Detected (NotDetected); Bact fragilis Not Reported Not Detected (NotDetected); Blood Culture Id Panel See PCR Comment (NotDetected); C auris Not Reported Not Detected (NotDetected); CTX-M Resistant Gene Not Detected (NotDetected); Calbicans Not Reported Not Detected (NotDetected); Candida glabrata Not Reported Not Detected (NotDetected); Candida krusei Not Reported Not Detected (NotDetected); Cneoformans/gatti Not Reported Not Detected (NotDetected); Cparapsilosis Not Reported Not Detected (NotDetected); E cloacae compx Not Reported DETECTED (NotDetected); Efaecalis Not Reported Not Detected (NotDetected); Efaecium Not Reported Not Detected (NotDetected); Enterobacterales DETECTED (NotDetected); Enterobacterales Not Reported DETECTED (NotDetected); Escherichia coli Not Reported Not Detected (NotDetected); H influenzae Not Reported Not Detected (NotDetected); IMP Resistant Gene Not Detected (NotDetected); K aerogenes Not Reported Not Detected (NotDetected); KPC Resistant Gene Not Detected (NotDetected); Koxytoca Not Reported Not Detected (NotDetected); Kpneumoniae grp Not Reported Not Detected (NotDetected); Lmonocyt Not Reported Not Detected (NotDetected); N meningitidis Not Reported Not Detected (NotDetected); NDM Resistant Gene Not Detected (NotDetected); OXA 48 Like Resistant Gene Not Detected (NotDetected); P aeruginosa Not Reported Not Detected (NotDetected); Proteus spp Not Reported Not Detected (NotDetected); Salmonella spp Not Reported Not Detected (NotDetected); Smarcescens Not Reported Not Detected (NotDetected); Staph lugdunensis Not Reported Not Detected (NotDetected); Staph spp. Not Reported Not Detected (NotDetected); Staphaureus Not Reported Not Detected (NotDetected); Staphepi Not Reported Not Detected (NotDetected); Stenmaltophilia Not Reported Not Detected (NotDetected); Strep agal(GrpB) Not Reported Not Detected (NotDetected); Strep pneum Not Reported Not Detected (NotDetected); Strep pyog (GrpA) Not Reported Not Detected (NotDetected); Strep spp Not Reported Not Detected (NotDetected); VIM Resistant Gene Not Detected (NotDetected); mcr-1 Colistin Resistant Gene Not Detected (NotDetected)
[2024-01-14 04:17] LABS: Enterobacter cloacae complex DETECTED (NotDetected)
[2024-01-14] MEDS: POTASSIUM CHLORIDE CRTAB 20 MEQ TABCR PO STA (05:03)
[2024-01-14 06:24] LABS: Basophils # (auto) 0.02 K/uL (0.00-0.20); Basophils % (auto) 0.2 %; Eosinophils # (auto) 0.01 K/uL (0.00-0.50); Eosinophils % (auto) 0.1 %; Hematocrit (blood only) 31.9 % (42.0-52.0); Hemoglobin 11.1 g/dl (14.0-18.0); Immature Granulocytes # (auto) 0.05 K/uL (0.01-0.20); Immature Granulocytes % (auto) 0.5 %; Lymphocytes # (auto) 0.55 K/uL (1.20-3.40); Lymphocytes % (auto) 5.4 %; Mean Corpuscular Hemoglobin 27.1 pg (25.0-34.0); Mean Corpuscular Hgb Conc 34.8 g/dL (32.0-36.0); Mean Platelet Volume 10.4 fL (9.4-12.4); Monocytes # (auto) 1.01 K/uL (0.11-0.59); Monocytes % (auto) 9.9 %; Neutrophils # (auto) 8.54 K/uL (1.40-6.50); Neutrophils % (auto) 83.9 %; Platelet Count 229 K/uL (130-400); RDW Coefficient of Variation 13.7 % (11.5-14.5); RDW Standard Deviation 38.8 fL (36.4-46.3); Red Blood Count 4.09 M/uL (4.70-6.10); White Blood Count 10.18 K/ul (4.8-10.8)
[2024-01-14 06:42] LABS: Albumin Globulin Ratio 0.8 (0.9-2); Albumin Level 3.1 gm/dl (3.4-5.0); BUN Creatinine Ratio 15.2 (10-20); Bilirubin,Total 1.3 mg/dl (0.2-1.0); Calcium 7.9 mg/dl (8.6-10.3); Creatinine Clr Calc Pharmacy 80.8 ml/min; Est GFR (African American) 79.5 ml/min; Est GFR (Non-African American) 68.6 ml/min; Globulin 3.7 gm/dl (2.5-4.0); Magnesium 1.9 mg/dl (1.7-2.4); Potassium 3.2 mmol/L (3.5-5.1); Total Protein 6.8 gm/dl (6.0-8.3)
[2024-01-14 07:16] LABS: Estimated Average Glucose 194 mg/dl; Hemoglobin A1C 8.4 % (4.5-5.6)
[2024-01-14] MEDS: lisinopril 10 MG TAB PO SCH (08:27)
[2024-01-14] MEDS: metroNIDAZOLE 500 MG/100 ML BAG IV SCH (08:28)
[2024-01-14] MEDS: CEFEPIME 2,000 MG in SYRINGE 0 ML IV SCH (08:29)
--- NOTE | 2024-01-14 09:11 | Gastrointestinal Consultation ---
Date of Consultation January 14, 2024 Assessment & Plan (1) Acute cholecystitis: Plan 63 year old male admitted with upper abd pain for about 3/4 weeks w/ mildly elevated transaminases and imaging concerning for gallstones and acute cholecystitis. NPO MRCP Antiemetics PRN Analgesia PRN Continue ABX Follow blood cultures Follow LFTs CCY per general surgery Thank you for allowing us to participate in the care of this patient. Please call with any acute changes, questions or concerns. Please see addendum below with additional recommendation from my supervising physician. Supervising Physician Co-Signing Physician Notes I personally saw and evaluated the patient on 01/14/2024 with BERHANE Pena and agree with her findings and plan of care. Abdomen soft and mild tenderness to palpation in RUQ. 63 y/o M admitted with abdominal pain found to have acute cholecystitis on imaging and mildly elevated LFTs. Seen by surgery who is recommending to evaluate for CBD stone prior to CCY. He had a CT of the abd/pelvis completed but there is no comment on the bile ducts. MRCP is ordered. If MRCP shows evidence of stone he will need an ERCP. Will await MRCP results. Continue to trend LFTs. Obtain blood cultures. Continue abx. Olya Freeman, DO Gastroenterology and Hepatology History of Present Illness Reason for Consultation: ?ERCP Requesting Physician: Gladis Attending Physician: Joel Griffith MD History of Present Illness 63 year old male with history of \T2DM, HTN, HLD and mild aortic stenosis who admitted through the ED with abd pain - acute cholecystitis. GI asked to evaluate given elevated LFTs, Pt was seen and evaluated, chart reviewed. Reports abd pain x 4 weeks. Notes this is upper abd. Constant. Unchanged by PO, movements, fasting or rest. he has had some nausea with the pain for maybe a day and one isolated episode of emesis. Otherwise no nausea/vomiting. No GERD. No diarrhea/constipation. No black or bloody stools. No fever, chills, CP, SOB. Denies weight change Denies new medications No ETOH No tobacco Tbili: 1.2 --> 1.3 AST: 52 --> 49 ALT: 63 --> 64 ALKP: 186 --> 175 CTAP 2023: The gallbladder is distended and and contains a few small gallstones. There is significant gallbladder wall thickening with pericholecystic inflammatory change. Therefore, these findings are consistent with acute cholecystitis. Focal irregular hypodensity within the liver adjacent to the gallbladder fossa measuring 2.7 cm. This could represent edema related to the acute cholecystitis versus focal fat. The pancreas, spleen, and adrenal glands are unremarkable.IMPRESSION: 1. Above findings consistent with acute cholecystitis. Surgical consultation recommended. Allergies Allergy/AdvReac Type Severity Reaction Status Date / Time No Known Drug Allergies Allergy Unknown Unknown Verified 01/13/24 16:36 Home Medications Medication Instructions Recorded Confirmed Type atorvastatin 40 mg tablet 40 mg PO QAM 01/13/24 01/13/24 History dulaglutide 3 mg/0.5 mL 3 mg subcut WK 01/13/24 01/13/24 History subcutaneous pen injector (Trulicity) empagliflozin 10 mg tablet 10 mg PO QAM 01/13/24 01/13/24 History (Jardiance) lisinopril 10 mg tablet 10 mg PO QAM 01/13/24 01/13/24 History Patient History Medical History (Updated 01/13/24 @ 18:01 by Lesley Mcnulty PA-C) Obesity (BMI 30-39.9) Mild aortic valve stenosis HLD (hyperlipidemia) HTN (hypertension) T2DM (type 2 diabetes mellitus) Surgical History No pertinent past surgical history Social History (Updated 01/13/24 @ 17:53 by Lesley Mcnulty PA-C) Smoking Status: Never smoker Hx Alcohol Use: Yes Alcohol type: beer Hx Substance Use: No Preferred Language: Chinese Communication Ability: Effective Sql Analyst Required: No Beliefs That Will Affect Care: None Current Living Situation: Family Other Information That Helps Us Care for You: No Feels Safe at Home: Yes Safety Concerns: Feels Safe At This Time Assistive Devices: None Review of Systems Review of Systems: All systems reviewed & are unremarkable except as noted in HPI & below Physical Exam Constitutional: WD/WN, vitals as above Respiratory: normal respiratory effort Cardiovascular: Rate/Rhythm: regular rate Gastrointestinal (Abdomen): Percussion/Palpation: + abdomen tender and abdomen soft; no guarding and abdomen not rigid Skin: no rashes, warm and dry Results & Data Vital Signs (Past 12 Hours) Vital Signs Temp Pulse Resp BP Pulse Ox O2 Del Method 01/14/24 07:52 36.7 C 104 H 20 132/80 93 Room Air 01/14/24 02:38 37.9 C H 107 H 18 137/67 94 Room Air 01/13/24 23:38 Room Air 01/13/24 23:11 37.8 C H 112 H 14 153/76 H 95 Room Air Laboratory Results 01/14/24 01/14/24 01/14/24 Range/Units 05:50 05:14 00:05 WBC 10.18 (4.8-10.8) K/ul RBC 4.09 L (4.70-6.10) M/uL Hgb 11.1 L (14.0-18.0) g/dl POC Hgb (14.0-18.0) g/dl Hct 31.9 L (42.0-52.0) % POC Hct (42-52) % MCV 78.0 L (80.0-100.0) fL MCH 27.1 (25.0-34.0) pg MCHC 34.8 (32.0-36.0) g/dL RDW Std Deviation 38.8 (36.4-46.3) fL RDW Coeff of Edith 13.7 (11.5-14.5) % Plt Count 229 (130-400) K/uL MPV 10.4 (9.4-12.4) fL Immature Gran % (Auto) 0.5 % Neut % (Auto) 83.9 % Lymph % (Auto) 5.4 % [place] % (Auto) 9.9 % Eos % (Auto) 0.1 % Baso % (Auto) 0.2 % Neut # (Auto) 8.54 H (1.40-6.50) K/uL Lymph # (Auto) 0.55 L (1.20-3.40) K/uL [place] # (Auto) 1.01 H (0.11-0.59) K/uL Eos # (Auto) 0.01 (0.00-0.50) K/uL Baso # (Auto) 0.02 (0.00-0.20) K/uL Immature Gran # (Auto) 0.05 (0.01-0.20) K/uL PT (9.0-12.0) Seconds INR (0.9-1.1) POC Sodium (135-144) mmol/L Sodium 135 L (136-145) mmol/L POC Potassium (3.3-5.0) mmol/L Potassium 3.2 L (3.5-5.1) mmol/L POC Chloride (101-112) mmol/L Chloride 101 (98-107) mmol/L Carbon Dioxide 24 (21-32) mmol/L POC Total CO2 (24-31) mmol/L Anion Gap 10 (3-11) POC Anion Gap (16-25) mmol/L POC BUN (7-18) mg/dl BUN 17 (6-23) mg/dl Creatinine 1.12 (0.6-1.4) mg/dl POC Creatinine (0.6-1.3) mg/dl Est Cr Clr Drug Dosing 80.8 ml/min Est GFR ( Amer) 79.5 ml/min Est GFR (Non-Af Amer) 68.6 ml/min BUN/Creatinine Ratio 15.2 (10-20) Glucose 172 H (70-99(Fasting)) mg/dl POC Glucose 178 H 236 H (70-99) mg/dl POC Glucose (other) (70-99) mg/dl Estimat Average Glucose 194 mg/dl Hemoglobin A1c 8.4 H (4.5-5.6) % Lactate (0.4-2.0) mmol/L Calcium 7.9 L (8.6-10.3) mg/dl POC Ioniz Calcium [place] (1.12-1.32) mmol/l Magnesium 1.9 (1.7-2.4) mg/dl Total Bilirubin 1.3 H (0.2-1.0) mg/dl AST 49 H (13-39) U/L ALT 64 H (7-52) U/L Alkaline Phosphatase 175 H (34-104) U/L Troponin I High Sens (0-20) pg/ml Total Protein 6.8 (6.0-8.3) gm/dl Albumin 3.1 L (3.4-5.0) gm/dl Globulin 3.7 (2.5-4.0) gm/dl Albumin/Globulin Ratio 0.8 L (0.9-2) Lipase (11-82) U/L Procalcitonin (0-0.5) ng/ml Urine Color Urine Appearance (Clear) Urine pH (4.5-7.5) Ur Specific [place] (1.000-1.030) Urine Protein (Negative) Urine Glucose (UA) (Negative) Urine Ketones (Negative) Urine Blood (Negative) Urine Nitrite (Negative) Urine Bilirubin (Negative) Urine Urobilinogen (Negative) Ur Leukocyte Esterase (Negative) Urine WBC (Auto) (0-5) /hpf Urine RBC (Auto) (0-4) /hpf U Hyaline Cast (Auto) (0-5) /lpf U Epithel Cells (Auto) (0-5) /lpf Urine Bacteria (Auto) (Negative) Ur Renal Epithelial Cell Granular Casts (0) /lpf Urine Yeast Enterobacterales (PCR) (NotDetected) E. cloacae complex PCR (NotDetected) SARS-CoV-2, RNA, NAAT (NEGATIVE) mcr-1 Colistin Res Gene PCR (NotDetected) blaIMP Car res Gene PCR (NotDetected) KPC-Carbap Res Gene PCR (NotDetected) blaNDM Car Res Gene PCR (NotDetected) OXA-48 Carbapenem Resis Gene (PCR) (NotDetected) blaVIM Car Res Gene PCR (NotDetected) CTX-M Gene Resistance (PCR) (NotDetected) Bld Cult ID Panel PCR (NotDetected) 01/13/24 01/13/24 01/13/24 Range/Units 20:02 17:25 16:05 WBC (4.8-10.8) K/ul RBC (4.70-6.10) M/uL Hgb (14.0-18.0) g/dl POC Hgb (14.0-18.0) g/dl Hct (42.0-52.0) % POC Hct (42-52) % MCV (80.0-100.0) fL MCH (25.0-34.0) pg MCHC (32.0-36.0) g/dL RDW Std Deviation (36.4-46.3) fL RDW Coeff of Edith (11.5-14.5) % Plt Count (130-400) K/uL MPV (9.4-12.4) fL Immature Gran % (Auto) % Neut % (Auto) % Lymph % (Auto) % [place] % (Auto) % Eos % (Auto) % Baso % (Auto) % Neut # (Auto) (1.40-6.50) K/uL Lymph # (Auto) (1.20-3.40) K/uL [place] # (Auto) (0.11-0.59) K/uL Eos # (Auto) (0.00-0.50) K/uL Baso # (Auto) (0.00-0.20) K/uL Immature Gran # (Auto) (0.01-0.20) K/uL PT (9.0-12.0) Seconds INR (0.9-1.1) POC Sodium (135-144) mmol/L Sodium (136-145) mmol/L POC Potassium (3.3-5.0) mmol/L Potassium (3.5-5.1) mmol/L POC Chloride (101-112) mmol/L Chloride (98-107) mmol/L Carbon Dioxide (21-32) mmol/L POC Total CO2 (24-31) mmol/L Anion Gap (3-11) POC Anion Gap (16-25) mmol/L POC BUN (7-18) mg/dl BUN (6-23) mg/dl Creatinine (0.6-1.4) mg/dl POC Creatinine (0.6-1.3) mg/dl Est Cr Clr Drug Dosing ml/min Est GFR ( Amer) ml/min Est GFR (Non-Af Amer) ml/min BUN/Creatinine Ratio (10-20) Glucose (70-99(Fasting)) mg/dl POC Glucose 211 H (70-99) mg/dl POC Glucose (other) (70-99) mg/dl Estimat Average Glucose mg/dl Hemoglobin A1c (4.5-5.6) % Lactate (0.4-2.0) mmol/L Calcium (8.6-10.3) mg/dl POC Ioniz Calcium [place] (1.12-1.32) mmol/l Magnesium (1.7-2.4) mg/dl Total Bilirubin (0.2-1.0) mg/dl AST (13-39) U/L ALT (7-52) U/L Alkaline Phosphatase (34-104) U/L Troponin I High Sens (0-20) pg/ml Total Protein (6.0-8.3) gm/dl Albumin (3.4-5.0) gm/dl Globulin (2.5-4.0) gm/dl Albumin/Globulin Ratio (0.9-2) Lipase (11-82) U/L Procalcitonin (0-0.5) ng/ml Urine Color [place] Urine Appearance Cloudy A (Clear) Urine pH 5.5 (4.5-7.5) Ur Specific [place] 1.026 (1.000-1.030) Urine Protein 3+ H (Negative) Urine Glucose (UA) Trace H (Negative) Urine Ketones 1+ H (Negative) Urine Blood Negative (Negative) Urine Nitrite Negative (Negative) Urine Bilirubin 1+ H (Negative) Urine Urobilinogen Positive H (Negative) Ur Leukocyte Esterase Trace H (Negative) Urine WBC (Auto) 1-5 (0-5) /hpf Urine RBC (Auto) 0-4 (0-4) /hpf U Hyaline Cast (Auto) 1-5 (0-5) /lpf U Epithel Cells (Auto) 0-5 (0-5) /lpf Urine Bacteria (Auto) 2+ H (Negative) Ur Renal Epithelial Cell Not Reportable Granular Casts 1-5 H (0) /lpf Urine Yeast Not Reportable Enterobacterales (PCR) (NotDetected) E. cloacae complex PCR (NotDetected) SARS-CoV-2, RNA, NAAT NEGATIVE (NEGATIVE) mcr-1 Colistin Res Gene PCR (NotDetected) blaIMP Car res Gene PCR (NotDetected) KPC-Carbap Res Gene PCR (NotDetected) blaNDM Car Res Gene PCR (NotDetected) OXA-48 Carbapenem Resis Gene (PCR) (NotDetected) blaVIM Car Res Gene PCR (NotDetected) CTX-M Gene Resistance (PCR) (NotDetected) Bld Cult ID Panel PCR (NotDetected) 01/13/24 01/13/24 Range/Units 15:36 15:30 WBC 11.28 H (4.8-10.8) K/ul RBC 4.71 (4.70-6.10) M/uL Hgb 12.5 L (14.0-18.0) g/dl POC Hgb 13.3 L (14.0-18.0) g/dl Hct 37.1 L (42.0-52.0) % POC Hct 39 L (42-52) % MCV 78.8 L (80.0-100.0) fL MCH 26.5 (25.0-34.0) pg MCHC 33.7 (32.0-36.0) g/dL RDW Std Deviation 38.7 (36.4-46.3) fL RDW Coeff of Edith 13.5 (11.5-14.5) % Plt Count 264 (130-400) K/uL MPV 10.7 (9.4-12.4) fL Immature Gran % (Auto) 0.5 % Neut % (Auto) 88.0 % Lymph % (Auto) 4.7 % [place] % (Auto) 6.7 % Eos % (Auto) 0.0 % Baso % (Auto) 0.1 % Neut # (Auto) 9.92 H (1.40-6.50) K/uL Lymph # (Auto) 0.53 L (1.20-3.40) K/uL [place] # (Auto) 0.76 H (0.11-0.59) K/uL Eos # (Auto) 0.00 (0.00-0.50) K/uL Baso # (Auto) 0.01 (0.00-0.20) K/uL Immature Gran # (Auto) 0.06 (0.01-0.20) K/uL PT 11.8 (9.0-12.0) Seconds INR 1.1 (0.9-1.1) POC Sodium 133 L (135-144) mmol/L Sodium 133 L (136-145) mmol/L POC Potassium 3.0 L (3.3-5.0) mmol/L Potassium 3.0 L (3.5-5.1) mmol/L POC Chloride 94 L (101-112) mmol/L Chloride 93 L (98-107) mmol/L Carbon Dioxide 26 (21-32) mmol/L POC Total CO2 25 (24-31) mmol/L Anion Gap 14 H (3-11) POC Anion Gap 18.0 (16-25) mmol/L POC BUN 20 H (7-18) mg/dl BUN 22 (6-23) mg/dl Creatinine 1.26 (0.6-1.4) mg/dl POC Creatinine 1.3 (0.6-1.3) mg/dl Est Cr Clr Drug Dosing 70.8 ml/min Est GFR ( Amer) 68.9 ml/min Est GFR (Non-Af Amer) 59.5 ml/min BUN/Creatinine Ratio 17.5 (10-20) Glucose 253 H (70-99(Fasting)) mg/dl POC Glucose (70-99) mg/dl POC Glucose (other) 269 H (70-99) mg/dl Estimat Average Glucose mg/dl Hemoglobin A1c (4.5-5.6) % Lactate 1.5 (0.4-2.0) mmol/L Calcium 8.9 (8.6-10.3) mg/dl POC Ioniz Calcium [place] 0.98 L (1.12-1.32) mmol/l Magnesium 2.0 (1.7-2.4) mg/dl Total Bilirubin 1.2 H (0.2-1.0) mg/dl AST 52 H (13-39) U/L ALT 63 H (7-52) U/L Alkaline Phosphatase 186 H (34-104) U/L Troponin I High Sens 12.4 (0-20) pg/ml Total Protein 8.3 (6.0-8.3) gm/dl Albumin 3.8 (3.4-5.0) gm/dl Globulin 4.5 H (2.5-4.0) gm/dl Albumin/Globulin Ratio 0.8 L (0.9-2) Lipase 17 (11-82) U/L Procalcitonin 1.49 H (0-0.5) ng/ml Urine Color Urine Appearance (Clear) Urine pH (4.5-7.5) Ur Specific [place] (1.000-1.030) Urine Protein (Negative) Urine Glucose (UA) (Negative) Urine Ketones (Negative) Urine Blood (Negative) Urine Nitrite (Negative) Urine Bilirubin (Negative) Urine Urobilinogen (Negative) Ur Leukocyte Esterase (Negative) Urine WBC (Auto) (0-5) /hpf Urine RBC (Auto) (0-4) /hpf U Hyaline Cast (Auto) (0-5) /lpf U Epithel Cells (Auto) (0-5) /lpf Urine Bacteria (Auto) (Negative) Ur Renal Epithelial Cell Granular Casts (0) /lpf Urine Yeast Enterobacterales (PCR) DETECTED A (NotDetected) E. cloacae complex PCR DETECTED A (NotDetected) SARS-CoV-2, RNA, NAAT (NEGATIVE) mcr-1 Colistin Res Gene PCR Not Detected (NotDetected) blaIMP Car res Gene PCR Not Detected (NotDetected) KPC-Carbap Res Gene PCR Not Detected (NotDetected) blaNDM Car Res Gene PCR Not Detected (NotDetected) OXA-48 Carbapenem Resis Gene (PCR) Not Detected (NotDetected) blaVIM Car Res Gene PCR Not Detected (NotDetected) CTX-M Gene Resistance (PCR) Not Detected (NotDetected) Bld Cult ID Panel PCR See PCR Comment (NotDetected)
--- NOTE | 2024-01-14 10:02 | Pharmacy Report ---
Pharmacy Glycemic Short Note 2 - Date of Service January 14, 2024 - Glycemic Short BSG Results (Last 24 hours): 01/13/24 01/13/24 01/13/24 15:30 15:36 20:02 Glucose 253 H POC Glucose 211 H POC Glucose (other) 269 H 01/14/24 01/14/24 01/14/24 00:05 05:14 05:50 Glucose 172 H POC Glucose 236 H 178 H POC Glucose (other) OUTPATIENT ANTIDIABETIC REGIMEN: * dulaglutide 3mg SQ weekly * empagliflozin 10mg PO daily HbA1C: 8.4% ASSESSMENT: * Pt is a 63 year old male admitted with acute cholecystitis and Enterobacter cloacae bacteremia. History of DM2. Pharmacy consulted to assist with inpatient glycemic management. * BSGs [phone]/dL since admission. Received 10 units of basal and 5 units of bolus insulin yesterday. * Remains NPO and receiving IV antibiotics. * Agree with basal/bolus insulin. Additional 10 units of Lantus given this AM as fasting BSG was 178mg/dL, however will continue with scaled basal BID based upon BSG as PO status may be a moving target the next several days. Novolog moderate scale q6 while NPO. PLAN FOR INPATIENT GLYCEMIC CONTROL: * Hold outpatient oral diabetes medications * Basal insulin * Lantus 0/5/10 units BID based upon BSG * Bolus insulin * NovoLog per scale ACHS or Q6hrs while NPO * Goal Range: Low 110 mg/dL - High 140 mg/dL * Correction Factor: 20 mg/dL/unit * Nutritional / Prandial insulin per carb ratio of 1 unit per 7 grams CHO consumed
[2024-01-14] MEDS: POTASSIUM CHLORIDE / WTR 10 MEQ/100 ML PLCT IV SCH (11:15)
[2024-01-14] MEDS: HYDROmorphone INJ 0.5 MG/0.5 ML SYR IV PRN (11:23)
[2024-01-14 11:55] VITALS: RESP 18
--- NOTE | 2024-01-14 13:49 | Magnetic Resonance Report ---
MR MRCP HISTORY: Right upper quadrant pain. r/o CBD stone, elevated LFTS, acute cholecystitis TECHNIQUE: MRCP of the abdomen was performed without contrast according to standard departmental prot ocol. COMPARISON STUDY: Abdomen and pelvis CT 01/13/2024. FINDINGS: Distended and thick-walled gallbladder with pericholecystic fluid and inflammatory change c onsistent with acute cholecystitis. The gallbladder is partially filled with sludge. The cystic duct is likely occluded proximally. Normal caliber common bile duct. No filling defects within the common bile duct to suggest a common bile duct stone. There is perforation at the superior aspect of the gal lbladder wall with extension of gallbladder contents into the adjacent undersurface of the right hepa tic lobe. This measures approximately 3 cm and corresponds to the CT abnormality. Therefore, this is consistent with a hepatic abscess. The pancreas, spleen, adrenal glands, and kidneys are within keith l limits. 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 Normal caliber esophagus. No retrope ritoneal lymphadenopathy. Thickening of the hepatic flexure of the colon is likely reactive to the ad jacent acute cholecystitis. IMPRESSION: 1. Redemonstration of the acute cholecystitis demonstrating focal perforation along the superior gall bladder wall. Therefore, this is consistent with a gangrenous acute cholecystitis with infected bile contents extending into the adjacent liver. This measures 3 cm and is consistent with a hepatic absce ss. 3. Normal caliber common bile duct. No evidence for common bile duct stone. 4. Surgical consultation recommended. 5. This report was called/faxed to the referring physician. ACT 112: Negative or not required by law. Electronically signed by: Tomas Knapp M.D. 01/14/2024 1:47 PM
--- NOTE | 2024-01-14 14:14 | Surgery Progress Note ---
Date of Service January 14, 2024 Assessment & Plan (1) Acute cholecystitis: Plan: complex cholecystitis with hepatic abscess would recommend IR perc drainage IV abx gallbladder needs drainage operative intervention would be morbid procedure at this point Admission and Anticipated Discharge Date Admission Date: January 13, 2024 Subjective feeld a little better MRCP noted with severe acute cholecystitis and associated abscess Review of Systems Constitutional: no chills Respiratory: no dyspnea Cardiovascular: no chest pain Gastrointestinal: + abdominal pain; no nausea and no vomit ing Genitourinary: no dysuria Neurologic: no localized weakness Psychiatric: no behavioral changes Physical Exam Constitutional: WD/WN, vitals as above Eyes: PERRL, conjunctivae normal, anicteric sclerae Respiratory: normal respiratory effort, lungs clear to auscultation Cardiovascular: RRR, no murmur, no edema Gastrointestinal (Abdomen): Inspection/Auscultation: abdomen normal to inspection and + abdomen distended Percussion/Palpation: + abdomen tender and abdomen soft Musculoskeletal: Head/Neck/Chest: normocephalic and head atraumatic Skin: no rashes, warm and dry Results & Data Vital Signs (Past 12 Hours) Vital Signs Temp Pulse Resp BP Pulse Ox O2 Del Method 01/14/24 11:55 36.6 C 116 H 18 165/97 H 95 Room Air 01/14/24 07:52 36.7 C 104 H 20 132/80 93 Room Air 01/14/24 02:38 37.9 C H 107 H 18 137/67 94 Room Air
--- NOTE | 2024-01-14 14:35 | Hospitalist Progress Note ---
Date of Service January 14, 2024 Assessment & Plan (1) Sepsis: (2) Acute cholecystitis: (3) Hypokalemia: (4) T2DM (type 2 diabetes mellitus): (5) HTN (hypertension): (6) HLD (hyperlipidemia): (7) Obesity (BMI 30-39.9): Plan Patient is a 63 yr male with H/O DM II, HTN, HLD and mild aortic stenosis who presents to ED secondary to abdominal pain x 3 weeks. Sepsis Complex gangrenous acute cholecystitis with focal perforation and hepatic abscess Gram-negative bacteremia--POA --MRCP:Redemonstration of the acute cholecystitis demonstrating focal perforation along the superior gallbladder wall. Therefore, this is consistent with a gangrenous acute cholecystitis with infected bile contents extending into the adjacent liver. This measures 3 cm and is consistent with a hepatic abscess. Normal caliber common bile duct. No evidence for common bile duct stone. Surgical consultation recommended. --CT ABD:findings consistent with acute cholecystitis. --Blood Cx:01/23: Growing gram-negative bacilli --Blood culture PCR growing Enterobacter Rales, E. cloacae complex -- Zosyn changed to cefepime and Flagyl based on cultures Continue n.p.o., bowel rest, IV fluids Appreciate GI, surgery input Monitor LFTs Hold statin Patient needs percutaneous drainage by IR per surgery. Patient agrees to be transferred to tertiary care facility for further management. Hyponatremia Hypochloremia Hypokalemia Replace electrolytes as needed monitor DM II HbA1c 8.4 Hold home regimen Utilize insulin while hospitalized Monitor BGs HTN chronic, unstable BP elevated in ED likely 2/2 pain monitor continue lisinopril with parameters Monitor HLD chronic stable hold statin in setting of transaminitis Morbid obesity, BMI 35.1 encourage diet/lifestyle modifications DVT Px: SCDS for now Code Status FULL CODE Disposition Tertiary care facility when bed available Admission and Anticipated Discharge Date Admission Date: January 13, 2024 Subjective Patient is seen and examined at bedside Abdominal pain is unchanged from yesterday States feeling very tired Also reports dry mouth Denies any chest pain, dyspnea Discussed with surgery today Review of Systems Review of Systems: All systems reviewed & are unremarkable except as noted in Subjective Physical Exam Physical Exam: Physical Exam: Vitals signs as noted above General Appearance:Obese, no apparent distress Head: normocephalic, Atraumatic Eyes: normal inspection, EOMI Neck: supple, Trachea midline Respiratory/Chest: Normal breath sounds, CTA, No accessory muscle use Cardiovascular: S1, S2, No murmur Abdomen/GI:Soft, RUQ tender, distended, Bowel sounds present Extremities/Musculoskeletal:normal inspection, 1+ Pedal edema Neurologic/Psych:AAOX3, grossly no focal neurological deficits Skin: normal color, warm Results & Data Results & Data Vital Signs (Past 12 Hours) Vital Signs Temp Pulse Resp BP Pulse Ox O2 Del Method 01/14/24 11:55 36.6 C 116 H 18 165/97 H 95 Room Air 01/14/24 07:52 36.7 C 104 H 20 132/80 93 Room Air 01/14/24 02:38 37.9 C H 107 H 18 137/67 94 Room Air Laboratory Results Short CBC 01/13/24 01/14/24 Range/Units 15:30 05:50 WBC 11.28 H 10.18 (4.8-10.8) K/ul Hgb 12.5 L 11.1 L (14.0-18.0) g/dl Hct 37.1 L 31.9 L (42.0-52.0) % Plt Count 264 229 (130-400) K/uL BMP 01/13/24 01/14/24 15:30 05:50 Sodium 133 L 135 L Potassium 3.0 L 3.2 L Chloride 93 L 101 Carbon Dioxide 26 24 BUN 22 17 Creatinine 1.26 1.12 Glucose 253 H 172 H Calcium 8.9 7.9 L Liver Function 01/13/24 01/14/24 Range/Units 15:30 05:50 Total Bilirubin 1.2 H 1.3 H (0.2-1.0) mg/dl AST 52 H 49 H (13-39) U/L ALT 63 H 64 H (7-52) U/L Alkaline Phosphatase 186 H 175 H (34-104) U/L Albumin 3.8 3.1 L (3.4-5.0) gm/dl Urine 01/13/24 Range/Units 16:05 Urine Color [place] Urine Appearance Cloudy A (Clear) Urine pH 5.5 (4.5-7.5) Ur Specific [place] 1.026 (1.000-1.030) Urine Protein 3+ H (Negative) Urine Glucose (UA) Trace H (Negative)
--- NOTE | 2024-01-14 16:05 | Discharge Summary ---
Date of Service January 14, 2024 Admission HPI Per Admitting Provider This is a 63 yr old M who has a significant PMH of T2DM, HTN, HLD and mild aortic stenosis who presents to ED secondary to abdominal pain x 3 weeks. Pain has been coming and going. He states pain is located all over the abdomen. He is unable to pinpoint if anything makes it worse/better. He hasn't ate for 6 days. The food/water does not make it any worse or better. Sx tend to be worse with movement. He denies radiation of pain. Currently pain is 8/10. He had one episode of vomiting, but otherwise denies nausea. He reports one day of being chilled but denies any documented fever at home. He denies URI sx, chest pain, sob, melena, hematochezia, dysuria, increased urg/freq with urination. In ED patient was hemodynamically stable. He did meet sepsis criteria secondary to fever with temperature 39.4 and he was tachycardic. His lab work was notable for WBC 11.2k, H&H 12.5 and 37.1, sodium 133, K3.0, anion gap 14, BUN 22, creatinine 1.26, glucose 253 and transaminitis with LFTs notable for total bilirubin 1.2, AST 52, ALT 63, alk phos 186 and elevated procalcitonin at 1.49. Urinalysis was also notable for bacteria. In ED he received IV fluid resuscitation as well as IV Zosyn. CT abdomen pelvis concerning for acute cholecystitis. Admission Exam Per Admitting Provider Physical Exam: Vitals signs as noted above General Appearance:Obese, no apparent distress Head: normocephalic, Atraumatic Eyes: normal inspection, EOMI Neck: supple, Trachea midline Respiratory/Chest: Normal breath sounds, CTA, No accessory muscle use Cardiovascular: S1, S2, No murmur Abdomen/GI:Soft, RUQ tender, distended, Bowel sounds present Extremities/Musculoskeletal:normal inspection, 1+ Pedal edema Neurologic/Psych:AAOX3, grossly no focal neurological deficits Skin: normal color, warm Principal Diagnosis Acute gangrenous cholecystitis with focal perforation and hepatic abscess Sepsis Gram-negative bacteremia Electrolyte imbalance Discharge Data Allergies Allergy/AdvReac Type Severity Reaction Status Date / Time No Known Drug Allergies Allergy Unknown Unknown Verified 01/13/24 16:36 Consultations 01/13/24 17:07 Consult General Surgery Routine 01/13/24 17:40 ED Decision to Admit Stat 01/13/24 18:08 Consult Gastroenterology Routine 01/14/24 16:03 Burn CD for patient Stat Procedures Performed Operation Date: 01/17/24 13:15 <No data on this case meets the specified criteria> Ordered Studies 01/13/24 15:31 CT abd pelvis IV con only Stat 01/14/24 09:01 MR MRCP Routine Laboratory Results WBC 10.18 K/ul (4.8-10.8) 01/14/24 05:50 RBC 4.09 M/uL (4.70-6.10) L 01/14/24 05:50 Hgb 11.1 g/dl (14.0-18.0) L 01/14/24 05:50 POC Hgb 13.3 g/dl (14.0-18.0) L 01/13/24 15:36 Hct 31.9 % (42.0-52.0) L 01/14/24 05:50 POC Hct 39 % (42-52) L 01/13/24 15:36 MCV 78.0 fL (80.0-100.0) L 01/14/24 05:50 MCH 27.1 pg (25.0-34.0) 01/14/24 05:50 MCHC 34.8 g/dL (32.0-36.0) 01/14/24 05:50 RDW Std Deviation 38.8 fL (36.4-46.3) 01/14/24 05:50 RDW Coeff of Edith 13.7 % (11.5-14.5) 01/14/24 05:50 Plt Count 229 K/uL (130-400) 01/14/24 05:50 MPV 10.4 fL (9.4-12.4) 01/14/24 05:50 Immature Gran % (Auto) 0.5 % 01/14/24 05:50 Neut % (Auto) 83.9 % 01/14/24 05:50 Lymph % (Auto) 5.4 % 01/14/24 05:50 Stephens % (Auto) 9.9 % 01/14/24 05:50 Eos % (Auto) 0.1 % 01/14/24 05:50 Baso % (Auto) 0.2 % 01/14/24 05:50 Neut # (Auto) 8.54 K/uL (1.40-6.50) H 01/14/24 05:50 Lymph # (Auto) 0.55 K/uL (1.20-3.40) L 01/14/24 05:50 Stephens # (Auto) 1.01 K/uL (0.11-0.59) H 01/14/24 05:50 Eos # (Auto) 0.01 K/uL (0.00-0.50) 01/14/24 05:50 Baso # (Auto) 0.02 K/uL (0.00-0.20) 01/14/24 05:50 Immature Gran # (Auto) 0.05 K/uL (0.01-0.20) 01/14/24 05:50 PT 11.8 Seconds (9.0-12.0) 01/13/24 15:30 INR 1.1 (0.9-1.1) 01/13/24 15:30 POC Sodium 133 mmol/L (135-144) L 01/13/24 15:36 Sodium 135 mmol/L (136-145) L 01/14/24 05:50 POC Potassium 3.0 mmol/L (3.3-5.0) L 01/13/24 15:36 Potassium 3.2 mmol/L (3.5-5.1) L 01/14/24 05:50 POC Chloride 94 mmol/L (101-112) L 01/13/24 15:36 Chloride 101 mmol/L (98-107) 01/14/24 05:50 Carbon Dioxide 24 mmol/L (21-32) 01/14/24 05:50 POC Total CO2 25 mmol/L (24-31) 01/13/24 15:36 Anion Gap 10 (3-11) 01/14/24 05:50 POC Anion Gap 18.0 mmol/L (16-25) 01/13/24 15:36 POC BUN 20 mg/dl (7-18) H 01/13/24 15:36 BUN 17 mg/dl (6-23) 01/14/24 05:50 Creatinine 1.12 mg/dl (0.6-1.4) 01/14/24 05:50 POC Creatinine 1.3 mg/dl (0.6-1.3) 01/13/24 15:36 Est Cr Clr Drug Dosing 80.8 ml/min 01/14/24 05:50 Est GFR ( Amer) 79.5 ml/min 01/14/24 05:50 Est GFR (Non-Af Amer) 68.6 ml/min 01/14/24 05:50 BUN/Creatinine Ratio 15.2 (10-20) 01/14/24 05:50 Glucose 172 mg/dl (70-99(Fasting)) H 01/14/24 05:50 POC Glucose 145 mg/dl (70-99) H 01/14/24 11:25 POC Glucose (other) 269 mg/dl (70-99) H 01/13/24 15:36 Estimat Average Glucose 194 mg/dl 01/14/24 05:50 Hemoglobin A1c 8.4 % (4.5-5.6) H 01/14/24 05:50 Lactate 1.5 mmol/L (0.4-2.0) 01/13/24 15:30 Calcium 7.9 mg/dl (8.6-10.3) L 01/14/24 05:50 POC Ioniz Calcium Juan Carlos 0.98 mmol/l (1.12-1.32) L 01/13/24 15:36 Magnesium 1.9 mg/dl (1.7-2.4) 01/14/24 05:50 Total Bilirubin 1.3 mg/dl (0.2-1.0) H 01/14/24 05:50 AST 49 U/L (13-39) H 01/14/24 05:50 ALT 64 U/L (7-52) H 01/14/24 05:50 Alkaline Phosphatase 175 U/L (34-104) H 01/14/24 05:50 Troponin I High Sens 12.4 pg/ml (0-20) 01/13/24 15:30 Total Protein 6.8 gm/dl (6.0-8.3) 01/14/24 05:50 Albumin 3.1 gm/dl (3.4-5.0) L 01/14/24 05:50 Globulin 3.7 gm/dl (2.5-4.0) 01/14/24 05:50 Albumin/Globulin Ratio 0.8 (0.9-2) L 01/14/24 05:50 Lipase 17 U/L (11-82) 01/13/24 15:30 Procalcitonin 1.49 ng/ml (0-0.5) H 01/13/24 15:30 Urine Color Conway 01/13/24 16:05 Urine Appearance Cloudy (Clear) A 01/13/24 16:05 Urine pH 5.5 (4.5-7.5) 01/13/24 16:05 Ur Specific Eccles 1.026 (1.000-1.030) 01/13/24 16:05 Urine Protein 3+ (Negative) H 01/13/24 16:05 Urine Glucose (UA) Trace (Negative) H 01/13/24 16:05 Urine Ketones 1+ (Negative) H 01/13/24 16:05 Urine Blood Negative (Negative) 01/13/24 16:05 Urine Nitrite Negative (Negative) 01/13/24 16:05 Urine Bilirubin 1+ (Negative) H 01/13/24 16:05 Urine Urobilinogen Positive (Negative) H 01/13/24 16:05 Ur Leukocyte Esterase Trace (Negative) H 01/13/24 16:05 Urine WBC (Auto) 1-5 /hpf (0-5) 01/13/24 16:05 Urine RBC (Auto) 0-4 /hpf (0-4) 01/13/24 16:05 U Hyaline Cast (Auto) 1-5 /lpf (0-5) 01/13/24 16:05 U Epithel Cells (Auto) 0-5 /lpf (0-5) 01/13/24 16:05 Urine Bacteria (Auto) 2+ (Negative) H 01/13/24 16:05 Ur Renal Epithelial Cell Not Reportable 01/13/24 16:05 Granular Casts 1-5 /lpf (0) H 01/13/24 16:05 Urine Yeast Not Reportable 01/13/24 16:05 Enterobacterales (PCR) DETECTED (NotDetected) A 01/13/24 15:30 E. cloacae complex PCR DETECTED (NotDetected) A 01/13/24 15:30 SARS-CoV-2, RNA, NAAT NEGATIVE (NEGATIVE) 01/13/24 17:25 mcr-1 Colistin Res Gene PCR Not Detected (NotDetected) 01/13/24 15:30 blaIMP Car res Gene PCR Not Detected (NotDetected) 01/13/24 15:30 KPC-Carbap Res Gene PCR Not Detected (NotDetected) 01/13/24 15:30 blaNDM Car Res Gene PCR Not Detected (NotDetected) 01/13/24 15:30 OXA-48 Carbapenem Resis Gene (PCR) Not Detected (NotDetected) 01/13/24 15:30 blaVIM Car Res Gene PCR Not Detected (NotDetected) 01/13/24 15:30 CTX-M Gene Resistance (PCR) Not Detected (NotDetected) 01/13/24 15:30 Bld Cult ID Panel PCR See PCR Comment (NotDetected) 01/13/24 15:30 Impressions Abdomen/Pelvis CT 01/13/24 15:[address] WITH IV CONTRAST CT DOSE: 1744.2 mGy.cm HISTORY: Left abd pain, fever TECHNIQUE: Multiaxial CT images of the abdomen and pelvis were performed following the use of intravenous contrast. A dose lowering technique was utilized adhering to the principles of ALARA. COMPARISON STUDY: None. FINDINGS: Bibasilar linear densities consistent with subsegmental atelectasis. No pneumoperitoneum. No pneumatosis. No acute fractures. The gallbladder is distended and and contains a few small gallstones. There is significant gallbladder wall thickening with pericholecystic inflammatory change. Therefore, these findings are consistent with acute cholecystitis. Focal irregular hypodensity within the liver adjacent to the gallbladder fossa measuring 2.7 cm. This could represent edema related to the acute cholecystitis versus focal fat. The pancreas, spleen, and adrenal glands are unremarkable. Normal right kidney. 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 No hydronephrosis. Calcified plaque within the normal caliber abdominal aorta. The main portal vein is patent. No retroperitoneal or pelvic lymphadenopathy. The bladder is unremarkable. The prostate gland is mildly enlarged. Colonic diverticulosis. No evidence for acute diverticulitis. Normal appendix. Mild thickening within the hepatic flexure of the colon is likely reactive to the adjacent gallbladder inflammation. Otherwise, no bowel wall thickening or obstruction. IMPRESSION: 1. Above findings consistent with acute cholecystitis. Surgical consultation recommended. 2. Additional findings as described above. ACT 112: Negative or not required by law. Electronically signed by: Tomas Knapp M.D. 01/13/2024 4:44 PM Cholangiopancreatography MRI 01/14/24 09:01 MR MRCP HISTORY: Right upper quadrant pain. r/o CBD stone, elevated LFTS, acute cholecystitis TECHNIQUE: MRCP of the abdomen was performed without contrast according to standard departmental protocol. COMPARISON STUDY: Abdomen and pelvis CT 01/13/2024. FINDINGS: Distended and thick-walled gallbladder with pericholecystic fluid and inflammatory change consistent with acute cholecystitis. The gallbladder is partially filled with sludge. The cystic duct is likely occluded proximally. Normal caliber common bile duct. No filling defects within the common bile duct to suggest a common bile duct stone. There is perforation at the superior aspect of the gallbladder wall with extension of gallbladder contents into the adjacent undersurface of the right hepatic lobe. This measures approximately 3 cm and corresponds to the CT abnormality. Therefore, this is consistent with a hepatic abscess. The pancreas, spleen, adrenal glands, and kidneys are within normal limits. 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 Normal caliber esophagus. No retroperitoneal lymphadenopathy. Thickening of the hepatic flexure of the colon is likely reactive to the adjacent acute cholecystitis. IMPRESSION: 1. Redemonstration of the acute cholecystitis demonstrating focal perforation along the superior gallbladder wall. Therefore, this is consistent with a gangrenous acute cholecystitis with infected bile contents extending into the adjacent liver. This measures 3 cm and is consistent with a hepatic abscess. 3. Normal caliber common bile duct. No evidence for common bile duct stone. 4. Surgical consultation recommended. 5. This report was called/faxed to the referring physician. ACT 112: Negative or not required by law. Electronically signed by: Tomas Knapp M.D. 01/14/2024 1:47 PM Hospital Course (1) Sepsis: (2) Acute cholecystitis: (3) Hypokalemia: (4) T2DM (type 2 diabetes mellitus): (5) HTN (hypertension): (6) HLD (hyperlipidemia): (7) Obesity (BMI 30-39.9): Plan Patient is a 63 yr male with H/O DM II, HTN, HLD and mild aortic stenosis who presents to ED secondary to abdominal pain x 3 weeks. Sepsis Complex gangrenous acute cholecystitis with focal perforation and hepatic abscess Gram-negative bacteremia--POA --MRCP:Redemonstration of the acute cholecystitis demonstrating focal perforation along the superior gallbladder wall. Therefore, this is consistent with a gangrenous acute cholecystitis with infected bile contents extending into the adjacent liver. This measures 3 cm and is consistent with a hepatic abscess. Normal caliber common bile duct. No evidence for common bile duct stone. Surgical consultation recommended. --CT ABD:findings consistent with acute cholecystitis. --Blood Cx:3/4: Growing gram-negative bacilli --Blood culture PCR growing Enterobacterales, E. cloacae complex -- Zosyn changed to cefepime and Flagyl based on cultures Continue n.p.o., bowel rest, IV fluids Appreciate GI, surgery input Monitor LFTs Hold statin Patient needs percutaneous drainage by IR per surgery. Patient agrees to be transferred to tertiary care facility for further management. Hyponatremia Hypochloremia Hypokalemia Replace electrolytes as needed monitor DM II HbA1c 8.4 Hold home regimen Utilize insulin while hospitalized Monitor BGs HTN chronic, unstable BP elevated in ED likely 2/2 pain monitor continue lisinopril with parameters Monitor HLD chronic stable hold statin in setting of transaminitis Morbid obesity, BMI 35.1 encourage diet/lifestyle modifications DVT Px: SCDS for now Code Status FULL CODE Disposition [facility] Total Time Total Time Spent Total Time Spent (In Minutes): 65 minutes Discharge Plan Discharge Items Patient Disposition: Transfer Acute Care Hospital Reason For Visit: ACUTE CHOLECYSTITIS Discharge Diagnosis: Acute gangrenous cholecystitis with focal perforation and hepatic abscess Sepsis Gram-negative bacteremia Electrolyte imbalance Condition on Discharge: Fair Activity: Per Instructions section Exercise/Sports: Wait until after follow-up appointment Non-emergency contact: Primary Care Provider and Surgeon Call non-emergency contact if: you have any medication questions, your symptoms worsen, your pain is concerning for you and you have a fever Follow-up/Referrals: Marcial Burkett MD [Primary Care Provider] - Dietitian Info: NPO currently Diet: Carb Consistent or DM2 Addtl Attending Provider Instructions: Follow-up with your primary care physician in 1 week upon discharge from the hospital Follow-up with your surgeon Dr.Kevin Mendez at [facility] for further management Seek immediate medical attention if your symptoms reoccur or worsen Please take all medications as instructed on discharge list below. Please call if you have any questions or problems. You can reach a [facility] hospitalist on duty at [facility] 24 hours a day by calling [phone] [facility] [employer] Provider Instructions: Date of Service: January 14, 2024 Current Inpatient Medications Dextrose (Dextrose 50% 50 Ml Syringe) 25 - 50 ml IV UD PRN; Protocol PRN Reason: Hypoglycemia Protocol Stop: 02/12/24 18:58 Glucagon (Glucagon For Inj 1 Mg Vial) 1 mg SQ UD PRN; Protocol PRN Reason: Hypoglycemia Protocol Stop: 02/12/24 18:58 Glucose (Glucose 10 Tab/Tube) 4 - 8 tab PO UD PRN; Protocol PRN Reason: Hypoglycemia Treatment Stop: 02/12/24 18:58 Glucose (Glucose 40% Gel 15 Gm Tube) 15 - 30 gm PO UD PRN; Protocol PRN Reason: Hypoglycemia Protocol Stop: 02/12/24 18:58 Hydromorphone HCl (Hydromorphone Inj 0.5 Mg/0.5 Ml Syr) 0.5 mg IV Q6H PRN PRN Reason: Severe Pain (Scale 7, 8, 9,10) Stop: 01/27/24 18:58 Last Admin: 01/14/24 11:23 Dose: 0.5 mg Acetaminophen (Ofirmev) 1,000 mg in 100 mls @ 400 mls/hr IV Q8H PRN PRN Reason: Mild-Mod Pain (Scale 1-6) Stop: 01/16/24 18:58 Last Infusion: 01/14/24 04:30 Dose: Infused Potassium Chloride/Sodium Chloride (Normal Saline W/20 Meq Kcl) 20 meq in 1,000 mls @ 100 mls/hr IV .Q10H LAVERNE; Protocol Stop: 02/12/24 20:14 Last Admin: 01/14/24 11:15 Dose: 100 mls/hr Metronidazole (Flagyl) 500 mg in 100 mls @ 100 mls/hr IV Q8H LAVERNE; Protocol Stop: 01/24/24 08:59 Last Infusion: 01/14/24 11:10 Dose: Infused Cefepime HCl 2,000 mg/ (Dextrose) 100 mls @ 33.333 mls/hr IV Q8H LAVERNE; Protocol Stop: 01/28/24 07:59 Insulin Aspart (Insulin Aspart Per Unit Charge) 0 units SC Q6 LAVERNE Stop: 02/13/24 00:00 Last Admin: 01/14/24 11:44 Dose: 1 units Insulin Glargine (Lantus Per Unit Charge) 0 units SC BID LAVERNE; Protocol Stop: 02/13/24 20:59 Lisinopril (Lisinopril 10 Mg Tab) 10 mg PO QAM LAVERNE Stop: 02/13/24 08:59 Last Admin: 01/14/24 08:27 Dose: 10 mg Miscellaneous (Carbohydrates For Hypoglycemia ) 15 - 30 gm PO UD PRN PRN Reason: Hypoglycemia Protocol Stop: 02/12/24 18:58 Miscellaneous Information (Pharmacy Glycemic Mgmt Consult) 1 each N/A UD PRN PRN Reason: Consult Stop: 02/12/24 18:58 Ondansetron HCl (Ondansetron Inj 2 Mg/Ml 2 Ml Vial) 4 mg IV Q6H PRN PRN Reason: Nausea Stop: 02/12/24 18:58 Pending Studies at Discharge: Yes Studies:: Blood culture Stand-Alone Forms: [facility] Skilled Items Patient informed of condition?: Yes DNR: No Discharge Level of Care: Other Communicable Disease: No Discharge Prognosis: Stable Lines: Peripheral IV Urinary Catheter: No Medications and DC Order Prescriptions: No Action lisinopril 10 mg tablet 10 mg PO QAM Jardiance 10 mg tablet 10 mg PO QAM Trulicity 3 mg/0.5 mL pen injector 3 mg SUBCUT WK Rx Instructions: atorvastatin 40 mg tablet 40 mg PO QAM Admission Data Admit Date/Time: 01/13/24 17:41 Attending Provider: Joel Griffith Admit Provider: Joel Griffith Primary Care Provider: Marcial Burkett Other Providers: Kerry Burgos; Ayan Blackman; Joel Griffith
[2024-01-14] MEDS: Cefepime 2,000 MG Extended Infusion IV SCH (17:29)
[2024-01-14 18:37] LABS: Influenza A virus by PCR Negative (Neg); Influenza B virus by PCR Negative (Neg); RSV by PCR Negative (Neg); SARS CoV2 RNA(COVID-19) Ceph NEGATIVE (Negative)
[2024-01-14 19:27] VITALS: BP 149/86; PULSE 87; TEMP 98.4; O2SAT 94
[2024-01-14] MEDS ORDERED: LANTUS PER UNIT CHARGE SC SCH (21:00)
--- OUTSIDE RECORDS SUMMARY | 2024-01-14 21:25 | External Medical Summary | Summary of Care ---
Author Name Unknown Organization [facility] [address] [address] Phone [phone] Care Team Providers Care Yarn Mercerizer Operator Helper Name Role Phone Marcial Burkett MD Primary Care Provider [phone] Reason for Visit * Reason Comments Diabetes Follow-Up Dosage Adjustment Via Phone (anticoag Cl inic) Encounter Details Date Type Department Care Team (Late st Contact Info) Description 12/03/2023 5:30 PM [facility] Pharmacy Pharmacy, [facility] [address] [place] [address] Pharmacist1, [facility] [address] [place] [id number] Type 2 diabetes mellitus with hemoglobin A1c goal of less than 8.0% ([facility])* Allergies No known active allergiesdocumented as of this encounter (statuses as of 12/03/2023) Medications Medication Sig Dispensed Refills Start Date End Date Status Atorvastatin Calcium 40 MG Oral Tablet (Lipitor) Take 1 Tablet by mouth in the morning. 90 Tablet 3 08/25/2023 Active Lisinopril 10 MG Oral Tablet (Prinivil) Take 1 Tablet by mouth in the morning. 90 Tablet 3 08/25/2023 Active OneTouch Verio In Vitro Strip (Glucose Blood)Indications:Type 2 diabetes mellitus with hemoglobin A1c goal of less than 8.0% (HCC) Use to test blood glucose once daily. DX: E11.9 100 Strip 3 09/17/2023 Active OneTouch Delica Lancets 33GIndications:Type 2 diabetes mellitus with hemoglobin A1c goal of less than 8.0% (HCC) Use to test blood glucose once daily. DX: E11.9 100 Each 3 09/17/2023 Active OneTouch Verio Flex System w/Device KitIndications:Type 2 diabetes mellitus with hemoglobin A1c goal of less than 8.0% (HCC) Use as directed. 0 09/17/2023 Active Empagliflozin 10 MG Oral Tablet (Jardiance)Indications :Type 2 diabetes mellitus with hemoglobin A1c goal of less than 8.0% (HCC) Take 1 Tablet by mouth in the morning. 90 Tablet 3 09/17/2023 Active Trulicity 3 MG/0.5ML Subcutaneous Solution Pen-injector (Dulaglutide)Indicatio ns:Type 2 diabetes mellitus with hemoglobin A1c goal of less than 8.0% (HCC) Inject 3 mg under the skin once a week. 6 mL 4 11/30/2023 Active documented as of this encounter (statuses as of 12/03/2023) Active Problems Problem Noted Date Diagnosed Date Obesity, Class II, BMI 35-39.9, isolated (see ac tual BMI) 11/30/2023 Mild aortic valve stenosis 11/03/2023 Type 2 diabetes mellitus wit h hemoglobin A1c goal of less than 8.0% 08/23/2023 Dyslipidemia 08/23/2023 HTN, goal below 130/80 08/23/2023 documented as of this encounter (statuses as of 12/03/2023) Resolved Problems Problem Noted Date Diagnosed Date Resolved Date Morbid obesity 08/24/2023 11/30/2023 documented as of this encounter (statuses as of 12/03/2023) Social History Tobacco Use Types Packs/Day Years Used Date Smoking Tobacco: Never Passive Smoke Exposure: Never Smokeless Tobacco: Never Alcohol Use Standard Drinks/Week Comments Yes 2 (1 standard drink = 0.6 oz pur e alcohol) AUDIT-C Answer Date Recorded Q1: How often do you have a drink containing alc ohol? Monthly or less 08/24/2023 Q2: How many drinks containi ng alcohol do you have on a typical day when you are drinking? 1 or 2 08/24/2023 Q3: How often do you have si x or more drinks on one occasion? Never 08/24/2023 Sex and Gender Information Value Date Recorded Sex Assigned at Not on file Gender Identity Not on file Sexual Orientation Not on file Job Start Date Occupation Industry Not on file Not on file Not on file documented as of this encounter Progress Notes * Alma VVinny RPh - 12/03/2023 1:09 PM EST Patient Phone Numbers Goal <8 Component Latest Ref Rng 08/24/2023 11/30/2023 12/02/2023 Hemoglobin A1C 4.0 - 5.6 % 12.5 (H) 8.5 (H) 8.7 (H) Estimated Average Glucose <126 mg/dL 312 (H) 197 (H) 203 (H) Diabetic Medications: Jardiance 10mg daily Trulicity 3mg weekly Component Latest Ref Rng 08/24/2023 12/02/2023 Triglycerides <=174 mg/dL 262 (H) 114 Cholesterol <200 mg/dL 260 (H) 167 HDL Cholesterol >39 mg/dL 48 54 Non-HDL Cholesterol <=159 mg/dL 212 (H) 113 LDL Cholesterol <=129 mg/dL 160 (H) 90 Dyslipidemia Medications: Atorvastatin 40mg daily Component Latest Ref Rng 08/24/2023 12/02/2023 BUN 6 - 20 mg/dL 17 15 Creatinine 0.6 - 1.2 mg/dL 1.1 0.9 Estimated Glomerular Filtration Rate >=60 mL/min 76 >90 Sodium 135 - 146 mmol/L 133 (L) 138 Potassium 3.5 - 5.1 mmol/L 4.5 4.3 Chloride 98 - 107 mmol/L 97 (L) 102 CO2 22 - 32 mmol/L 26 25 Anion Gap 7 - 15 mmol/L 10 11 Glucose 70 - 120 mg/dL 311 (H) 98 Albumin 3.8 - 5.0 g/dL 4.1 4.3 AST 10 - 50 U/L 15 19 Alkaline Phosphatase 35 - 130 U/L 75 62 Bilirubin, Total <=1.2 mg/dL 0.2 0.3 Calcium 8.4 - 10.2 mg/dL 9.3 9.5 Protein 6.0 - 8.3 g/dL 7.2 7.0 ALT 10 - 50 U/L 29 27 FOLLOW UP: Return to clinic in 12 weeks 03/02/2024 Vinny Marquez RPh, CACP, CDE Clinical Pharmacist [facility] 12/03/2023, 1:26 PM documented in this encounter Plan of Treatment Upcoming Encounters Date Type Department Care Team (Late st Contact Info) Description 03/02/2024 3:30 PM EDT Pharmacy Pharmacy, [facility] [place] [address] [facility] [place] [address] Pharmacist1, [facility] [address] [place] [address] 10/17/2024 2:45 PM EST Office Visit Ophthalmology, [place] [address] [phone] Hakan Celis MD [address] [id number] Health Maintenance Due Date Last Done Comments Pneumococcal Vaccine: 65+ Years (1 - PCV) 1964 Depression Screening 1970 HIV Screening 1973 Diabetic Foot Exam 1976 Hepatitis C Screening 1976 DTaP,Tdap,and Td Vaccines (1 - Tdap) 1977 Cologuard 2003 Colonoscopy 2003 Colorectal Cancer Screening 2003 Fecal Occult Blood Test 2003 Sigmoidoscopy 2003 Zoster Vaccines (1 of 2) 2008 Albumin/Creatinine Ratio 11/27/2017 11/27/2016 Hepatitis B (1 of 3 - Risk 3-dose series) 2018 COVID-19 Vaccine ( - season) 2023 03/07/2021, 02/14/2021 Influenza Vaccine (FLU shot) (#1) 2023 10/16/2020 *BASELINE EKG FOR HTN 08/27/2023 HbA1c 06/01/2024 12/02/2023, 07/2024, 08/24/2023, Additional history exists Diabetic Eye Exam 10/07/2024 10/07/2023, 10/07/2023 GFR 12/02/2024 12/02/2023, 01/2023, 11/27/2016, Additional history exists Lipid Panel 12/02/2028 12/02/2023, 01/2023, 11/27/2016, Additional history exists GARDASIL-HPV IMMUNIZATION SERIES Aged Out No longer eligible based on patient's age to complete this topic MENINGOCOCCAL (MENACTRA/MENVEO) Aged Out No longer eligible based on patient's age to complete this topic documented as of this encounter Medical Devices Not on filedocumented as of this encounter Visit Diagnoses Diagnosis Type 2 diabetes mellitus with hemoglobin A1c goal of less than 8.0% ([facility])- Primary documented in this encounter Care Teams Yarn Mercerizer Operator Helper Relationship Specialty Start Date End Date Marcial Burkett MD [address] [address] PCP - General Family Medicine 08/24/23 documented as of this encounter
--- OUTSIDE RECORDS SUMMARY | 2024-01-14 21:25 | External Medical Summary | Summary of Care ---
Author Name Unknown Organization [facility] Address [address] [place] [facility] [place] [place] [address] Phone [phone] Care Team Providers Care Machine Gun Mechanic Name Role Phone Marcial Burkett MD Primary Care Provider +1 [phone] Reason for Visit * Reason Comments Outpatient Testing Encounter Details Date Type Department Care Team (Late st Contact Info) Description 12/02/2023 3:40 PM EST Laboratory Laboratory [facility] [address] [place] [address] [facility] Lab [facility] [address] [place] [address] Type 2 diabetes mellitus with hemoglobin A1c goal of less than 8.0% ([facility]); Dyslipidemia Allergies No known active allergiesdocumented as of this encounter (statuses as of 12/02/2023) Medications Medication Sig Dispensed Refills Start Date [...] as of this encounter (statuses as of 12/02/2023) Active Problems Problem Noted Date Diagnosed Date Obesity, Class II, BMI 35-39.9, isolated (see ac tual BMI) 11/30/2023 Mild aortic valve stenosis 11/03/2023 Type 2 diabetes mellitus wit h hemoglobin A1c goal of less than 8.0% 08/23/2023 Dyslipidemia 08/23/2023 HTN, goal below 130/80 08/23/2023 documented as of this encounter (statuses as of 12/02/2023) Resolved Problems Problem Noted Date Diagnosed Date Resolved Date Morbid obesity 08/24/2023 11/30/2023 documented as of this encounter (statuses as of 12/02/2023) Social History Tobacco Use Types Packs/Day Years [...] on file documented as of this encounter Plan of Treatment Upcoming Encounters Date Type Department Care Team (Late st Contact Info) Description 03/02/2024 3:30 PM EDT Pharmacy Pharmacy, [facility] [place] [place] [address] [facility] [place] [address] Pharmacist1, [facility] [address] [facility] [place] [address] 10/17/2024 2:45 PM EST Office Visit Ophthalmology, [place] [address] [place] [address] Hakan Celis MD [address] [place] [address] Pending Results Name Type Priority Associated Diagnoses Date /Time HEMOGLOBIN A1C Lab Routine Type 2 diabetes mellitus with hemoglobin A1c goal of less than 8.0% (HCC) 12/02/2023 3:35 PM EST LIPID PANEL WITH DIRECT LDL IF TG IS HIGH Lab Routine Dyslipidemia 12/02/2023 3:35 PM EST COMPREHENSIVE METABOLIC PANEL Lab Routine Type 2 diabetes mellitus with hemoglobin A1c goal of less than 8.0% ([facility]) Dyslipidemia 12/02/2023 3:35 PM EST Health Maintenance Due Date Last Done Comments [...] - Risk 3-dose series) 2018 COVID-19 Vaccine (3 - season) 2023 03/07/2021, 02/14/2021 Influenza Vaccine (FLU shot) (#1) 2023 10/16/2020 *BASELINE EKG FOR HTN 08/27/2023 HbA1c 05/30/2024 11/30/2023, 10/01/2023, 11/27/2016 GFR 08/24/2024 08/24/2023, 04/2017, 04/27/2012 Diabetic Eye Exam 10/07/2024 10/07/2023, 10/07/2023 Lipid Panel 08/24/2028 08/24/2023, 04/2017, 11/27/2016, Additional history exists GARDASIL-HPV IMMUNIZATION SERIES [...] A1c goal of less than 8.0% (HCC) Dyslipidemia Other and unspecified hyperlipidemia documented in this encounter Care Teams Machine Gun Mechanic Relationship Specialty Start Date End Date Marcial Burkett MD [address] [facility] [place] [address] PCP - General Family Medicine 08/24/23 documented as of this encounter
--- OUTSIDE RECORDS SUMMARY | 2024-01-14 21:26 | External Medical Summary ---
Author Name Unknown Address Unknown Organization [id number]:[facility] [place] [address] [facility] [address] Laboratory Report Ordering Provider Test Date Status STANLEY LEO V 12/02/2023 15:35:28 Final Observation Date Value Abnormality Reference (Units ) Status BUN 12/02/2023 15:35:28 15 6-20 (mg/dL) Final Creatinine 12/02/2023 15:35:28 0.9 0.6-1.2 (mg/dL) Final Glomerular filtration rate/1.73 sq M.predicted [Volume Rate/Area] in Serum, Plasma or Blood by Creatinine-based formula (CKD-EPI) 12/02/2023 15:35:28 >90 >=60 (mL/min) Final eGFR is calculated based on the CKD-EPI 2020 equation SODIUM 12/02/2023 15:35:28 138 135-146 (m mol/L) Final Potassium 12/02/2023 15:35:28 4.3 3.5-5.1 (m mol/L) Final Cl 12/02/2023 15:35:28 102 98-107 (mm ol/L) Final CO2 12/02/2023 15:35:28 25 22-32 (mmo l/L) Final Anion gap 12/02/2023 15:35:28 11 7-15 (mmol /L) Final Glucose 12/02/2023 15:35:28 98 70-120 (mg /dL) Final Albumin 12/02/2023 15:35:28 4.3 3.8-5.0 (g /dL) Final AST (Aspartate aminotransferase) 12/02/2023 15:35:28 19 10-50 (U/L) Final Alk Phos 12/02/2023 15:35:28 62 35-130 (U/ L) Final Bilirubin, Total 12/02/2023 15:35:28 0.3 <=1 .2 (mg/dL) Final Calcium 12/02/2023 15:35:28 9.5 8.4-10.2 ( mg/dL) Final Protein 12/02/2023 15:35:28 7.0 6.0-8.3 (g /dL) Final ALT (Alanine aminotransferase) 12/02/2023 15:35:28 27 10-50 (U/L) Final Performing Location [facility] [place] [facility] [address] [facility] [address]
--- OUTSIDE RECORDS SUMMARY | 2024-01-14 21:26 | External Medical Summary ---
Author Name Unknown Address Unknown Organization [id number]:[facility] [place] - [address] [facility] [address] Laboratory Report Ordering Provider Test Date Status DARYA BRODY 11/30/2023 16:49:09 Final Observation Date Value Abnormality Reference (Units ) Status HbA1C 11/30/2023 16:49:09 8.5 Above high normal 4. 0-5.6 (%) Final The use of HbA1c to monitor glycemic status is based on normal hemoglobin and HbA composition. This test should not be used in patients with abnormal hemoglobin that affects the half life of the red blood cell or the in vivo glycation rates. Glucose, estimated average 11/30/2023 16:49:09 197 Above high normal <126 (mg/dL) Javed dacosta Performing Location LAB[facility]ORY [facility] [place] - [address] [facility] [address]
--- OUTSIDE RECORDS SUMMARY | 2024-01-14 21:26 | External Medical Summary | Summary of Care ---
Author Name Unknown Organization [facility] Address [address] [facility] [address] Phone [phone] Care Team Providers Care Glassine Machine Tender Name Role Phone Marcial Burkett MD Primary Care Provider [phone] [phone] Reason for Visit * Reason Comments Follow Up Pt here for follow u p Physical-Exam Pt here for cpe Encounter Details Date Type Department Care Team (Late st Contact Info) Description 11/30/2023 4:20 PM EST Office Visit Family Practice [facility] [address] [place] [address] Marcial Burkett MD [address] [place] [address] Type 2 diabetes mellitus with hemoglobin A1c goal of less than 8.0% ([facility])*; Dyslipidemia; Mild aortic valve stenosis; HTN, goal below 130/80; Morbid obesity (HCC) Allergies No known active allergiesdocumented as of this encounter (statuses as of 11/30/2023) Medications Medication Sig Dispensed Refills Start Date End Date Status Atorvastatin Calcium 40 MG Oral Tablet (Lipitor) Take 1 Tablet by mouth in the morning. 90 Tablet 3 08/25/2023 Active Lisinopril 10 MG Oral Tablet (Prinivil) Take 1 Tablet by mouth in the morning. 90 Tablet 3 08/25/2023 Active OneTouch Verio In Vitro Strip (Glucose Blood)Indications:T ype 2 diabetes mellitus with hemoglobin A1c goal of less than 8.0% (HCC) Use to test blood glucose once daily. DX: E11.9 100 Strip 3 09/17/2023 Active OneTouch Delica Lancets 33GIndications:Type 2 diabetes mellitus with hemoglobin A1c goal of less than 8.0% (HCC) Use to test blood glucose once daily. DX: E11.9 100 Each 3 09/17/2023 Active Tengrade Flex System w/Device KitIndications:Type 2 diabetes mellitus with hemoglobin A1c goal of less than 8.0% (HCC) Use as directed. 0 09/17/2023 Active Empagliflozin 10 MG Oral Tablet (Jardiance)Indicati ons:Type 2 diabetes mellitus with hemoglobin A1c goal of less than 8.0% (HCC) Take 1 Tablet by mouth in the morning. 90 Tablet 3 09/17/2023 Active Trulicity 3 MG/0.5ML Subcutaneous Solution Pen-injector (Dulaglutide)Indica tions:Type 2 diabetes mellitus with hemoglobin A1c goal of less than 8.0% (HCC) Inject 3 mg under the skin once a week. 6 mL 4 11/30/2023 Active Trulicity 3 MG/0.5ML Subcutaneous Solution Pen-injector (Dulaglutide)Indica tions:Type 2 diabetes mellitus with hemoglobin A1c goal of less than 8.0% (HCC) Inject 3 mg under the skin once a week. 6 mL 4 09/17/2023 11/30/2023 Discontinued (Refill) documented as of this encounter (statuses as of 11/30/2023) Active Problems Problem Noted Date Diagnosed Date Obesity, Class II, BMI 35-39.9, isolated (see ac tual BMI) 11/30/2023 Mild aortic valve stenosis 11/03/2023 Type 2 diabetes mellitus wit h hemoglobin A1c goal of less than 8.0% 08/23/2023 Dyslipidemia 08/23/2023 HTN, goal below 130/80 08/23/2023 documented as of this encounter (statuses as of 11/30/2023) Resolved Problems Problem Noted Date Diagnosed Date Resolved Date Morbid obesity 08/24/2023 11/30/2023 documented as of this encounter (statuses as of 11/30/2023) Social History Tobacco Use Types Packs/Day Years [...] on file documented as of this encounter Last Filed Vital Signs Vital Sign Reading Time Taken Comments Blood Pressure 140/84 11/30/2023 4:05 PM EST Pulse 88 11/30/2023 4:05 PM EST Temperature 36.6 C (97.8 F) 11/30/2023 4:05 PM ES T Respiratory Rate 18 11/30/2023 4:05 PM EST Oxygen Saturation - - Inhaled Oxygen Concentration - - Weight 113.9 kg (251 lb) 11/30/2023 4:05 PM EST Height 177.8 cm (5' 10") 11/30/2023 4:05 PM EST Body Mass Index 36.01 11/30/2023 4:05 PM EST documented in this encounter Progress Notes * Marcial Burkett MD - 11/30/2023 8:50 PM EST SUBJECTIVE: Gaudencio Li is a 63 year old male. Chief Complaint Patient presents with Follow Up Pt here for follow up Physical-Exam Pt here for cpe HPI: Routine visit. Doing well. Glucose improving and weight coming down. Mild seen on echo. Good systolic function. He feels well. Patient Active Problem List Diagnosis Code Type 2 diabetes mellitus with hemoglobin A1c goal of less than 8.0% ([facility]) E11.9 Dyslipidemia E78.5 HTN, goal below 130/80 I10 Morbid obesity ([facility]) E66.01 Mild aortic valve stenosis I35.0 Current Outpatient Medications Medication Sig Dispense Refill Atorvastatin Calcium 40 MG Oral Tablet (Lipitor) Take 1 Tablet by mouth in the morning. 90 Tablet 3 Lisinopril 10 MG Oral Tablet (Prinivil) Take 1 Tablet by mouth in the morning. 90 Tablet 3 Empagliflozin 10 MG Oral Tablet (Jardiance) Take 1 Tablet by mouth in the morning. 90 Tablet 3 Trulicity 3 MG/0.5ML Subcutaneous Solution Pen-injector (Dulaglutide) Inject 3 mg under the skin once a week. 6 mL 4 OneTouch Verio In Vitro Strip (Glucose Blood) Use to test blood glucose once daily. DX: E11.9 100 Strip 3 OneTouch Delica Lancets 33G Use to test blood glucose once daily. DX: E11.9 100 Each 3 OneTouch Verio Flex System w/Device Kit Use as directed. No current facility-administered medications for this visit. Allergy: Review of patient's allergies indicates: No Known Allergies OBJECTIVE: BP 140/84 | Pulse 88 | Temp 36.6 C (97.8 F) (Tympanic) | Resp 18 | Ht 1.778 m (5' 10") | Wt 113.9 kg (251 lb) | BMI 36.01 kg/m | BSA 2.37 m General: alert, healthy, and no distress Head: Normocephalic, No masses, lesions, tenderness or abnormalities Neck: supple, no adenopathy, no bruits, thyroid normal size, non-tender, without nodularity Lungs: lungs clear to auscultation Heart: regular rate & rhythm, no gallops, and 1/6 systolic ejection low pitched blowing murmur aortic area ASSESSMENT AND PLAN: (E11.9) Type 2 diabetes mellitus with hemoglobin A1c goal of less than 8.0% (HCC) (primary encounter diagnosis) Plan: HEMOGLOBIN A1C, HEMOGLOBIN A1C, Trulicity 3 MG/0.5ML Subcutaneous Solution Pen-injector (Dulaglutide) (E78.5) Dyslipidemia Plan: continue statin (I35.0) Mild aortic valve stenosis Plan: yearly echo (I10) HTN, goal below 130/80 Plan: stable (E66.01) Morbid obesity (HCC) Plan: losing weight on trulicity Follow up in 6 month(s). No other complaints were offered at this time. Marcial Burkett MD documented in this encounter Nursing Notes * Mary Carmen Temple LPN - 11/30/2023 4:05 PM EST The patient has been properly identified by confirmation of name and date of . Chief Complaint Patient presents with Follow Up Pt here for follow up documented in this encounter Plan of Treatment Upcoming Encounters Date Type Department Care Team (Late st Contact Info) Description 12/01/2023 3:30 PM EST Office [facility] [place] [facility] [place] [address] [facility] [place] [address] Pharmacist1, [facility] [address] [facility] [place] [address] 10/17/2024 2:45 PM EST Office Visit Ophthalmology, [place] [address] [place] [address] Hakan Celis MD [address] [place] [address] Pending Results Name Type Priority Associated Diagnoses Date /Time HEMOGLOBIN A1C Lab Routine Type 2 diabetes mellitus with hemoglobin A1c goal of less than 8.0% (HCC) 11/30/2023 4:49 PM EST Scheduled Orders Name Type Priority Associated Diagnoses Orde r Schedule HEMOGLOBIN A1C Lab Routine Type 2 diabetes mellitus with hemoglobin A1c goal of less than 8.0% (HCC) Expected: 11/30/2023 (Approximate), Expires: 11/29/2024 HEMOGLOBIN A1C Lab Routine Type 2 diabetes mellitus with hemoglobin A1c goal of less than 8.0% (HCC) Expected: 11/30/2023 (Approximate), Expires: 11/29/2024 Health Maintenance Due Date Last Done Comments [...] 10/16/2020 *BASELINE EKG FOR HTN 08/27/2023 HbA1c 02/23/2024 08/24/2023, 11/27/2016 GFR 08/24/2024 08/24/2023, 04/2017, 04/27/2012 Diabetic [...] hemoglobin A1c goal of less than 8.0% (HCC)- Primary Dyslipidemia Other and unspecified hyperlipidemia Mild aortic valve stenosis Aortic valve disorders HTN, goal below 130/80 Unspecified essential hypertension Morbid obesity (HCC) Morbid obesity documented in this encounter Care Teams Glassine Machine Tender Relationship Specialty Start Date End Date Marcial Burkett MD [address] [facility] [place] [address] PCP - General Family Medicine 08/24/23 documented as of this encounter
--- OUTSIDE RECORDS SUMMARY | 2024-01-14 21:26 | External Medical Summary | Summary of Care ---
Author Name Unknown Organization [facility] Address [address] [place] [address] Phone [phone] Care Team Providers Care Track Laminating Machine Tender Name Role Phone Marcial Burkett MD Primary Care Provider [phone] [phone] Reason for Visit * Reason Comments Outpatient Testing Encounter Details Date Type Department Care Team (Late st Contact Info) Description 11/30/2023 3:50 PM EST Laboratory Laboratory, [facility] [address] [place] [address] [facility] [address] [place] [address] Type 2 diabetes mellitus with hemoglobin A1c goal of less than 8.0% ([facility]) Allergies No known active allergiesdocumented as of [...] Active Problems Problem Noted Date Diagnosed Date Mild aortic valve stenosis 11/03/2023 Morbid obesity 08/24/2023 Type 2 diabetes mellitus wit h hemoglobin [...] 12/01/2023 3:30 PM EST Office Visit Pharmacy, [facility] [address] [place] [address] Pharmacist1, [facility] [address] [place] [address] 10/17/2024 2:45 PM EST Office Visit Ophthalmology, [place] [address] [place] [address] Hakan Celis MD [address] [place] [address] Pending Results Name Type Priority Associated Diagnoses Date /Time HEMOGLOBIN A1C Lab Routine Type 2 diabetes mellitus with hemoglobin A1c goal of less than 8.0% ([facility]) 11/30/2023 4:49 PM EST Health Maintenance Due Date Last [...] A1c goal of less than 8.0% (HCC) documented in this encounter Care Teams Track Laminating Machine Tender Relationship Specialty Start Date End Date Marcial Burkett MD [address] [place] [address] PCP - General Family Medicine 08/24/23 documented as of this encounter
--- OUTSIDE RECORDS SUMMARY | 2024-01-14 21:26 | External Medical Summary | Summary of Care ---
Author Name Unknown Organization [facility] Address [address] [facility] [place] [address] Phone [phone] Care Team Providers Care Residential Program Coordinator Name Role Phone Marcial Burkett MD Primary Care Provider +1 [phone] Reason for Visit * Reason Comments Diabetes Follow-Up Dosage Adjustment In Person (Anticoag Cl inic) Encounter Details Date Type Department Care Team (Late st Contact Info) Description 12/01/2023 3:30 PM EST Office Visit Pharmacy, [facility] [address] [facility] [place] [address] Pharmacist1, [facility] [address] [facility] [place] [address] Type 2 diabetes mellitus with hemoglobin A1c goal of less than 8.0% ([facility])*; Dyslipidemia Allergies No known active allergiesdocumented as of this encounter (statuses as of 12/01/2023) Medications Medication Sig Dispensed Refills Start Date [...] DX: E11.9 100 Each 3 09/17/2023 Active CloudEndure Flex System w/Device KitIndications:Type 2 diabetes mellitus [...] as of this encounter (statuses as of 12/01/2023) Active Problems Problem Noted Date Diagnosed Date Obesity, Class II, BMI 35-39.9, isolated (see ac tual BMI) 11/30/2023 Mild aortic valve stenosis 11/03/2023 Type 2 diabetes mellitus wit h hemoglobin A1c goal of less than 8.0% 08/23/2023 Dyslipidemia 08/23/2023 HTN, goal below 130/80 08/23/2023 documented as of this encounter (statuses as of 12/01/2023) Resolved Problems Problem Noted Date Diagnosed Date Resolved Date Morbid obesity 08/24/2023 11/30/2023 documented as of this encounter (statuses as of 12/01/2023) Social History Tobacco Use Types Packs/Day Years [...] as of this encounter Progress Notes * Vinny Samson, [facility] - 12/01/2023 3:33 PM EST Medication Therapy Disease Management Clinic - Diabetes Management Progress Note Gaudencio Li, identified by name and date of , is a 63 year old male being seen for diabetes management/education. Patient presents for return diabetic visit. DIABETES: Current diabetic medications: RESTART: Jardiance 10mg daily RESTART: Trulicity 3mg weekly Medication Injection Site: Thigh Lifestyle: Diet: improved History of Treatment Barriers: Lifestyle: None Therapy considerations: Renal Function Medication: None Glucose Review/SMBG: No log to appointment. BG 84 in clinic - 6 hours after breakfast. Hypoglycemia: Does your blood sugar go below 70 mg/dL? No Hyperglycemia symptoms present: polyurea, polydipsia, fatigue, blurry vision Goal <8 Recent Labs Units 11/30/23 1649 08/24/23 1715 11/27/16 0835 HEMOGLOBIN A1C - [facility] % 8.5* 12.5* 10.5* Recent Labs Units 08/24/23 1715 11/27/16 0835 ESTIMATED GLOMERULAR FILTRATION RATE - [facility] mL/min 76 -- CREATININE - [facility] mg/dL 1.1 0.8 Lab Results Component Value Date/Time CREATININE - [facility] 1.1 08/24/2023 05:15 PM CREATININE - [facility] 0.8 11/27/2016 08:35 AM CREATININE - [facility] 0.8 04/27/2012 08:53 AM CREATININE, RANDOM URINE - [facility] 200 11/27/2016 08:35 AM HYPERTENSION: Patient on ACEi/ARB: yes, Lisinopril 10mg daily BP Readings from Last 3 Encounters: 11/30/23 140/84 08/24/23 146/88 Blood pressure at goal: yes HYPERLIPIDEMIA: Patient is taking moderate or high intensity statin: yes, Atorvastatin 40mg daily HEALTH MAINTENANCE REVIEW: Health Maintenance Due Topic Date Due Pneumococcal Vaccine: 65+ Years (1 - PCV) Never done Depression Screening Never done HIV Screening Never done Diabetic Foot Exam Never done Hepatitis C Screening Never done DTaP,Tdap,and Td Vaccines (1 - Tdap) Never done Colorectal Cancer Screening Never done Zoster Vaccines (1 of 2) Never done Albumin/Creatinine Ratio 11/27/2017 Hepatitis B (1 of 3 - Risk 3-dose series) Never done Influenza Vaccine (FLU shot) (1) 07/23/2023 COVID-19 Vaccine (3 - 2022-24 season) 2023 *BASELINE EKG FOR HTN Never done ASSESSMENT & PLAN: ICD-10-CM 1. Type 2 diabetes mellitus with hemoglobin A1c goal of less than 8.0% (HCC) E11.9 2. Dyslipidemia E78.5 BG Readings - Blood sugars not available. A1C yesterday 8.5!!. Great improvement Medications - Reviewed current regimen, patient is adherent to regimen. Diet, Exercise, Lifestyle - No significant lifestyle changes since last visit. Discussed with patient today. Patient is agreeable to SMBG 1 time(s) daily. Patient aware to contact clinic if any hypoglycemia before next visit. MEDICATION CHANGES: no change Diabetic Medications: Jardiance 10mg daily Trulicity 3mg weekly HEALTH MAINTENANCE INTERVENTIONS: Labs: Ordered & Scheduled: BMP/CMP and Lipid Panel Immunizations: Needs all of his vaccines. Foot Exam: Complete with next PCP visit on 11/30/23 Eye Exam: Up to Date Annual Wellness Visit: Up to Date FOLLOW UP: Return to clinic in 12 weeks 03/02/2024 Vinny Marquez RPh, [facility] Clinical Pharmacist - Professional Skateboarder Medication Therapy Management Clinic 12/01/2023, 3:33 PM documented in this encounter Plan of Treatment Upcoming Encounters Date Type Department Care Team (Late st Contact Info) Description 03/02/2024 3:30 PM EDT Pharmacy Pharmacy, [facility] [address] [facility] [place] [address] Pharmacist1, [facility] [address] [facility] [place] [address] 10/17/2024 2:45 PM EST Office Visit Ophthalmology, [place] [address] Hakan Celis [place] [address] Scheduled Orders Name Type Priority Associated Diagnoses Orde r Schedule LIPID PANEL WITH DIRECT LDL IF TG IS HIGH Lab Routine Dyslipidemia Expected: 12/02/2023, Expires: 12/01/2024 COMPREHENSIVE METABOLIC PANEL Lab Routine Type 2 diabetes mellitus with hemoglobin A1c goal of less than 8.0% (HCC) Dyslipidemia Expected: 12/02/2023, Expires: 12/01/2024 Health Maintenance Due Date Last Done Comments [...] EKG FOR HTN 08/27/2023 HbA1c 05/30/2024 11/30/2023, 01/2023, 11/27/2016 GFR 08/24/2024 08/24/2023, 04/2017, 04/27/2012 Diabetic [...] (HCC)- Primary Dyslipidemia Other and unspecified hyperlipidemia documented in this encounter Care Teams Residential Program Coordinator Relationship Specialty Start Date End Date Marcial Burkett MD [address] [place] [address] PCP - General Family Medicine 08/24/23 documented as of this encounter
--- OUTSIDE RECORDS SUMMARY | 2024-01-14 21:26 | External Medical Summary | Summary of Care ---
Author Name Unknown Organization [facility] Address [address] [place] [address] Phone [phone] Care Team Providers Care Welder Production [employer] Name Role Phone Marcial Burkett MD Primary Care Provider [phone] Reason for Referral * Precert (Within 10 days (routine)) - Authorized Specialty Diagnoses / Procedures Referred By Nilsa jensen Referred To Contact Cardiac Studies Diagnoses Systolic murmur Procedures ECHO, COMPLETE (2D), TRANS-THORACIC Marcial Burkett MD [address] [place] [address] Referral ID Status Reason Start Date Expiration Date V isits Requested Visits Authorized [id number] Authorized Precert 08/24/2023 999 999 * Evaluate & Treat - Unlimited Visits (Within 10 days (routine)) - Authorized Specialty Diagnoses / Procedures Referred By Nilsa jensen Referred To Contact Ophthalmology Diagnoses Change in vision Marcial Burkett MD [address] [place] [address] Referral ID Status Reason Start Date Expiration Date Visits Requested Visits Authorized [id number] Authorized Specialty Services Required 08/24/2023 999 999 Question Answer Referral Priority Within 10 days (routine) Referring to: [facility] Referring for: Ophthalmology Conditions Ophthalmology Conditions Change in Vision Reason for Visit * Reason Comments NEW PATIENT New pt here to get e stablished in care, has diabetes, and it is effecting his vision. Encounter Details Date Type Department Care Team Description 08/24/2023 Office Visit Family Practice [facility] [address] [place] [address] Marcial Burkett MD [address] [place] [address] Type 2 diabetes mellitus with hemoglobin A1c goal of less than 8.0% ([facility])*; Dyslipidemia; HTN, goal below 130/80; Change in vision; Systolic murmur; Morbid obesity (HCC) Allergies No known active allergiesdocumented as of this encounter (statuses as of 08/24/2023) Medications Medication Sig Dispensed Refills Start Date End Date Status Trulicity 3 MG/0.5ML Subcutaneous Solution Pen-injector (Dulaglutide) Inject 3 mg under the skin once a week. 0 Active Empagliflozin 10 MG Oral Tablet (Jardiance) Take 1 Tablet by mouth in the morning. 0 Active documented as of this encounter (statuses as of 08/24/2023) Active Problems Problem Noted Date Morbid obesity 08/24/2023 Type 2 diabetes mellitus with hemoglobin A1c goal of less than 8.0% 08/23/2023 Dyslipidemia 08/23/2023 HTN, goal below 130/80 08/23/2023 documented as of this encounter (statuses as of 08/24/2023) Social History Tobacco Use Types Packs/Day Years Used Date Smoking Tobacco: Never Passive Smoke Exposure: Never Smokeless Tobacco: Never Tobacco Cessation:Counseling Given: Not Answered Alcohol Use Standard Drinks/Week Comments Yes 2 (1 standard drink = 0.6 oz pur e alcohol) Alcohol Habits Answer Date Recorded How often do you have a drink containing alcohol ? Monthly or less 08/24/2023 How many drinks containing a lcohol do you have on a typical day when you are drinking? 1 or 2 08/24/2023 How often do you have six or more drinks on one occasion? Never 08/24/2023 Sex Assigned at Date Recorded Not on file Job Start Date Occupation Industry Not on file Not on file Not on file documented as of this encounter Last Filed Vital Signs Vital Sign Reading Time Taken Comments Blood Pressure 146/88 08/24/2023 4:23 PM EDT Pulse 92 08/24/2023 4:23 PM EDT Temperature 37.1 C (98.8 F) 08/24/2023 4:23 PM ED T Respiratory Rate 16 08/24/2023 4:23 PM EDT Oxygen Saturation - - Inhaled Oxygen Concentration - - Weight 117.9 kg (260 lb) 08/24/2023 4:23 PM EDT Height - - Body Mass Index - - documented in this encounter Progress Notes * Marcial Burkett MD - 08/24/2023 5:48 PM EDT SUBJECTIVE: Gaudencio Li is a 62 year old male. CC: Chief Complaint Patient presents with NEW PATIENT New pt here to get established in care, has diabetes, and it is effecting his vision. There are no exam notes on file for this visit. HPI: Gaudencio is a very pleasant 62 year old male with type 2 diabetes, hypertension, and dyslipidemia whocomes in today to establish care. His former PCP retired about 2 years ago and he has had no care since then. His only two medications are trulicity and jardiance, neither of which he takes with any sort of regularity he admits. He has been having some vision changes. He has never seen an eye doctor. He has never had colorectal cancer screening and will consider this in the future, but not today.He has not had labs done in "many years." He notes that now that he has Medicare coverage he would like to start seeing a physician regularly. He is quite overweight. He does not exercise. [facility] He denies history of stroke or heart attack. He does get somewhat short of breath with activity, likely due to general deconditioning. PHM: Patient Active Problem List Diagnosis Code Type 2 diabetes mellitus with hemoglobin A1c goal of less than 8.0% (HCC) E11.9 Dyslipidemia E78.5 HTN, goal below 130/80 I10 Morbid obesity (HCC) E66.01 No past surgical history on file. No family history on file. Social History Socioeconomic History Marital status: Spouse name: Not on file Number of children: Not on file Years of education: Not on file Highest education level: Not on file Occupational History Not on file Tobacco Use Smoking status: Never Passive exposure: Never Smokeless tobacco: Never Substance and Sexual Activity Alcohol use: Yes Alcohol/week: 2.0 standard drinks Types: 2 12 oz of beer per week Drug use: Never Sexual activity: Not on file Other Topics Concern Not on file Social History Narrative Not on file Social Determinants of Health Financial Resource Strain: Not on file Food Insecurity: Not on file Transportation Needs: Not on file Physical Activity: Not on file Stress: Not on file Social Connections: Not on file Intimate Partner Violence: Not on file Housing Stability: Not on file Outpatient Medications Marked as Taking for the 08/24/23 encounter (Office Visit) with Marcial Paige MD Medication Sig Empagliflozin 10 MG Oral Tablet (Jardiance) Take 1 Tablet by mouth in the morning. Trulicity 3 MG/0.5ML Subcutaneous Solution Pen-injector (Dulaglutide) Inject 3 mg under the skin once a week. Review of patient's allergies indicates: No Known Allergies OBJECTIVE: BP 146/88 | Pulse 92 | Temp 37.1 C (98.8 F) (Tympanic) | Resp 16 | Wt 117.9 kg (260 lb) General: alert, healthy, and obese Skin: skin color, texture, turgor are normal, no rashes or significant lesions Head: Normocephalic, No masses, lesions, tenderness or abnormalities Oropharynx: normal Eye Exam: PERRLA, conjunctiva are pink and non-injected, sclera clear, EOMI Neck: supple, no adenopathy, no bruits, thyroid normal size, non-tender, without nodularity Heart: regular rate & rhythm, no gallops, 1/6 systolic ejection low pitched blowing murmur aortic area, and no murmurs Lungs: chest symmetric with normal AP diameter, no chest deformities noted, no chest wall tenderness, lungs clear to auscultation Pulses: radial=2/4, carotid=2/4 w/o bruits, posterior tibial=2/4 Abdomen: abdomen soft, non-tender, normal bowel sounds, and no masses or organomegaly Extremities: no joint deformities, effusion, or inflammation, no edema, no clubbing, no cyanosis ASSESSMENT/PLAN: Gaudencio was seen today for new patient. He has not had any medical care in several years due to a combination of factors. He will sign for his previous medical records on the way out today. We will update his blood work. I would like him to see an eye doctor and have an echocardiogram as well. I will be keeping a close eye on him. Diagnoses and all orders for this visit: Type 2 diabetes mellitus with hemoglobin A1c goal of less than 8.0% (HCC) - HEMOGLOBIN A1C; Future - COMPREHENSIVE METABOLIC PANEL; Future Dyslipidemia - LIPID PANEL WITH DIRECT LDL IF TG IS HIGH; Future HTN, goal below 130/80 - CBC WITH WBC DIFFERENTIAL AND ANEMIA REFLEX WORKUP; Future Change in vision - ADULT/PEDS OPHTHALMOLOGY/OPTOMETRY REFERRAL OP Systolic murmur - ECHO, COMPLETE (2D), TRANS-THORACIC; Future Morbid obesity (HCC) -diet exercise Follow-up: Return in about 3 months (around 11/24/2023). | Check-out note: Have him sign release of info form from previous PCP before he leaves please Marcial Burkett MD documented in this encounter Plan of Treatment Upcoming Encounters Date Type Specialty Care Team Description 11/02/2023 Cardiac Studies Cardiac Studies 11/30/2023 Office Visit Family Medicine Marcial Burkett MD [address] [facility] [place] [address] Pending Results Name Type Priority Associated Diagnoses Date /Time HEMOGLOBIN A1C Lab Routine Type 2 diabetes mellitus with hemoglobin A1c goal of less than 8.0% (HCC) 08/24/2023 5:15 PM EDT LIPID PANEL WITH DIRECT LDL IF TG IS HIGH Lab Routine Dyslipidemia 08/24/2023 5:15 PM EDT CBC WITH WBC DIFFERENTIAL AND ANEMIA REFLEX WORKUP Lab Routine HTN, goal below 130/80 08/24/2023 5:15 PM EDT COMPREHENSIVE METABOLIC PANEL Lab Routine Type 2 diabetes mellitus with hemoglobin A1c goal of less than 8.0% (HCC) 08/24/2023 5:15 PM EDT Scheduled Orders Name Type Priority Associated Diagnoses Orde r Schedule HEMOGLOBIN A1C Lab Routine Type 2 diabetes mellitus with hemoglobin A1c goal of less than 8.0% (HCC) Expected: 08/24/2023 (Approximate), Expires: 08/23/2024 LIPID PANEL WITH DIRECT LDL IF TG IS HIGH Lab Routine Dyslipidemia Expected: 08/24/2023, Expires: 08/24/2024 CBC WITH WBC DIFFERENTIAL AND ANEMIA REFLEX WORKUP Lab Routine HTN, goal below 130/80 Expected: 08/24/2023 (Approximate), Expires: 08/24/2024 COMPREHENSIVE METABOLIC PANEL Lab Routine Type 2 diabetes mellitus with hemoglobin A1c goal of less than 8.0% (HCC) Expected: 08/24/2023 (Approximate), Expires: 08/23/2024 ECHO, COMPLETE (2D), TRANS-THORACIC Echocardiology Routine Systolic murmur Expected: 08/24/2023, Expires: 09/24/2025 Scheduled Referrals Name Type Priority Associated Diagnoses Orde r Schedule ADULT/PEDS OPHTHALMOLOGY/OPTOM ETRY REFERRAL OP Referral Within 10 days (routine) Change in vision Ordered: 08/24/2023 Health Maintenance Due Date Last Done Comments COVID-19 Vaccine (#1) 02/27/1961 Pneumococcal Vaccine: Pediatrics (0 to 5 Years) and At-Risk Patients (6 to 64 Years) (1 - PCV) 1964 Depression Screening 1970 HIV Screening 1973 DIABETES-EYE EXAM 1976 Diabetic Foot Exam 1976 Hepatitis C Screening 1976 DTaP,Tdap,and Td Vaccines (1 - Tdap) 1977 Cologuard 2003 Colonoscopy 2003 Colorectal Cancer Screening 2003 Fecal Occult Blood Test 2003 Sigmoidoscopy 2003 Zoster Vaccines (1 of 2) 2008 HbA1c 05/27/2017 11/27/2016 Albumin/Creatinine Ratio 11/27/2017 11/27/2016 GFR 11/27/2017 11/27/2016, 04/27/2012 Lipid Panel 11/27/2021 11/27/2016, 04/2017, 04/27/2012, Additional history exists Influenza Vaccine (FLU shot) (#1) 2023 GARDASIL-HPV IMMUNIZATION SERIES Aged Out No longer eligible based on patient's age to complete this topic Hepatitis B Aged Out No longer eligi ble based on patient's age to complete this topic MENINGOCOCCAL (MENACTRA/MENVEO) Aged Out No longer eligible based on patient's age to complete this topic documented as of this encounter Medical Devices Not on filedocumented as of this encounter Visit Diagnoses Diagnosis Type 2 diabetes mellitus with hemoglobin A1c goal of less than 8.0% (HCC)- Primary Dyslipidemia Other and unspecified hyperlipidemia HTN, goal below 130/80 Unspecified essential hypertension Change in vision Unspecified visual disturbance Systolic murmur Undiagnosed cardiac murmurs Morbid obesity (HCC) Morbid obesity documented in this encounter Care Teams Wel[employer] Relationship Specialty Start Date End Date Marcial Burkett MD [address] [place] [address] PCP - General Family Medicine 08/24/23 documented as of this encounter
--- OUTSIDE RECORDS SUMMARY | 2024-01-14 21:26 | External Medical Summary ---
Author Name Unknown Address Unknown Organization K01:[facility] [place] [address] [facility] [address] Laboratory Report Ordering Provider Test Date Status KEVIN LEOK V 12/02/2023 15:35:28 Final Observation Date Value Abnormality Reference (Units ) Status Triglyceride 12/02/2023 15:35:28 114 <=174 ( mg/dL) Final Triglyceride Reference Range s (mg/dL):
<150 Acceptable
150-174 Borderline high
175-499 High
>=500 Very high Cholesterol 12/02/2023 15:35:28 167 <200 (mg /dL) Final Total Cholesterol Reference Ranges (mg/dL):
<200 Desirable
200-239 Borderline high
>=240 High HDL 12/02/2023 15:35:28 54 >39 (mg/dL ) Final HDL Cholesterol Reference Ra nges (mg/dL):
>=60 High (Desirable)
<50 Low (Undesirable) For Females
<40 Low (Undesirable) For Males NON-HDL CHOLESTEROL 12/02/2023 15:35:28 113 <=159 (mg/dL) Final Non-HDL Cholesterol Referenc e Range (mg/dL):
<100 Target level for high risk ASCVD patient
<130 Optimal for general population
130-159 Near optimal for general population
160-189 Borderline High
190-219 High
>=220 Very High LDL, (calculated) 12/02/2023 15:35:28 90 <= 129 (mg/dL) Final LDL Cholesterol Reference Ra nges (mg/dL):
<70 Target level for high risk ASCVD patient
<100 Optimal for general population
100-129 Near optimal for general population
130-159 Borderline high
160-189 High
>=190 Very high Performing Location [facility] [place] [address] [facility] [address]
--- OUTSIDE RECORDS SUMMARY | 2024-01-14 21:26 | External Medical Summary | Summary of Care ---
Author Name Unknown Organization [facility] Address [address] [place] [address] Phone [phone] Care Team Providers Care Speech Professor Name Role Phone Marcial Burkett MD Primary Care Provider [phone] Reason for Visit * Reason Onset Date Comments Appointment 08/25/2023 ADULT/PEDS OPHTH ALMOLOGY/OPTOMETRY REFERRAL Encounter Details Date Type Department Care Team Description 08/25/2023 Telephone Family Practice [facility] [address] [facility] [place] [address] Marcial Burkett MD [address] [facility] [place] [address] Appointment (/ADULT/PEDS OPHTHALMOLOGY/OPT... Allergies No known active allergiesdocumented as of this encounter (statuses as of 08/25/2023) Medications Medication Sig Dispensed Refills Start Date End Date Status Trulicity 3 MG/0.5ML Subcutaneous Solution Pen-injector (Dulaglutide) Inject 3 mg under the skin once a week. 0 Active Empagliflozin 10 MG Oral Tablet (Jardiance) Take 1 Tablet by mouth in the morning. 0 Active Atorvastatin Calcium 40 MG Oral Tablet (Lipitor) Take 1 Tablet by mouth in the morning. 90 Tablet 3 08/25/2023 Active Lisinopril 10 MG Oral Tablet (Prinivil) Take 1 Tablet by mouth in the morning. 90 Tablet 3 08/25/2023 Active documented as of this encounter (statuses as of 08/25/2023) Active Problems Problem Noted Date Morbid obesity 08/24/2023 Type 2 diabetes mellitus with hemoglobin A1c goal of less than 8.0% 08/23/2023 Dyslipidemia 08/23/2023 HTN, goal below 130/80 08/23/2023 documented as of this encounter (statuses as of 08/25/2023) Social History Tobacco Use Types Packs/Day Years [...] on file documented as of this encounter Miscellaneous Notes * Telephone Encounter - Taty Galvin - 08/25/2023 2:03 PM EDT Will send for scheduling * Telephone Encounter - DOMINGO Bartlett - 08/25/2023 1:54 PM EDT Patient is calling back, he states Dr Burkett recommended [facility] in the hospital. He states that is where he would like to go. FYI * Telephone Encounter - Taty Galvin - 08/25/2023 8:20 AM EDT ADULT/PEDS OPHTHALMOLOGY/OPTOMETRY REFERRAL LM for pt to call back to see where he wanted to go for this and we can fax the referral If he does not have anyone [facility] accepts his insurance. documented in this encounter Plan of Treatment Upcoming Encounters Date Type Specialty Care Team Description 09/17/2023 Office Visit Pharmacy Pharmacist1, [facility] [address] [facility] [place] [address] 11/02/2023 Cardiac Studies Cardiac Studies 11/30/2023 Office Visit Family Medicine Marcial Burkett MD [address] [place] [address] Health Maintenance Due Date Last Done Comments [...] of 2) 2008 Albumin/Creatinine Ratio 11/27/2017 11/27/2016 Influenza Vaccine (FLU shot) (#1) 2023 HbA1c 02/23/2024 08/24/2023, 11/27/2016 GFR 08/24/2024 08/24/2023, 04/2017, 04/27/2012 Lipid Panel 08/24/2028 08/24/2023, 04/2017, 11/27/2016, Additional [...] Not on filedocumented as of this encounter Care Teams Speech Professor Relationship Specialty Start Date End Date Marcial Burkett MD [address] [place] [address] PCP - General Family Medicine 08/24/23 documented as of this encounter
--- OUTSIDE RECORDS SUMMARY | 2024-01-14 21:26 | External Medical Summary | Summary of Care ---
Author Name Unknown Organization [facility] Address [address] [place] [address] Phone [phone] Care Team Providers Care Sheriff Sergeant Name Role Phone Marcial Burkett MD Primary Care Provider [phone] Reason for Visit * Reason Onset Date Comments Health Maintenance 10/13/2023 Encounter Details Date Type Department Care Team (Late st Contact Info) Description 10/13/2023 Telephone Family Practice [facility] [address] [facility] [place] [id number] Marcial Burkett MD [address] [place] [address] Health Maintenance Allergies No known active allergiesdocumented as of this encounter (statuses as of 10/13/2023) Medications Medication Sig Dispensed Refills Start Date [...] hemoglobin A1c goal of less than 8.0% ([facility]) Use to test blood glucose once daily. [...] once a week. 6 mL 4 09/17/2023 Active documented as of this encounter (statuses as of 10/13/2023) Active Problems Problem Noted Date Diagnosed Date Morbid obesity 08/24/2023 Type 2 diabetes mellitus wit h hemoglobin A1c goal of less than 8.0% 08/23/2023 Dyslipidemia 08/23/2023 HTN, goal below 130/80 08/23/2023 documented as of this encounter (statuses as of 10/13/2023) Social History Tobacco Use Types Packs/Day Years [...] encounter Miscellaneous Notes * Telephone Encounter - Lauryn Rabago LPN - 10/13/2023 11:52 AM EST Care Gaps Comprehensive Care Outreach Last Office/Telemedicine Visit: 08/24/2023 (in office), Visit date not found (telemedicine) Next Office Visit: 11/30/2023 Hemoglobin AIC Results: Lab Results Component Value Date/Time HEMOGLOBIN A1C - [facility] 12.5 (H) 08/24/2023 05:15 PM HEMOGLOBIN A1C - [facility] 10.5 (H) 11/27/2016 08:35 AM Reviewed Health Maintenance below: Health Maintenance Topic Date Due Pneumococcal Vaccine: 65+ Years (1 - PCV) Never done Depression Screening Never done HIV Screening Never done Diabetic Foot Exam Never done Hepatitis C Screening Never done DTaP,Tdap,and Td Vaccines (1 - Tdap) Never done Colorectal Cancer Screening Never done Zoster Vaccines (1 of 2) Never done Albumin/Creatinine Ratio 11/27/2017 Colon urine Care Gap Outreach Action Taken: Unable to reach won't ring through documented in this encounter Plan of Treatment Upcoming Encounters Date Type Department Care Team (Late st Contact Info) Description 10/13/2023 3:30 PM EST Office Visit Pharmacy, [facility] [address] [facility] [place] [address] Pharmacist1, [facility] [address] [facility] [place] [address] 10/19/2023 2:30 PM EST Office Visit [facility] [address] [place] [address] Ayan Christina MD [address] [place] [address] 11/02/2023 4:00 PM EST Cardiac Studies Cardiac Studies, [facility] [address] [place] [address] 11/30/2023 4:20 PM EST Office Visit Family Practice [facility] [address] [place] [address] Marcial Burkett MD [address] [place] [address] 10/17/2024 2:45 PM EST Office Visit Ophthalmology, [place] [address] [place] [address] Hakan Celis MD [address] [facility] [address] [place] [address] Health Maintenance Due Date Last Done Comments [...] filedocumented as of this encounter Care Teams Sheriff Sergeant Relationship Specialty Start Date End Date Marcial Burkett MD [address] [place] [address] PCP - General Family Medicine 08/24/23 documented as of this encounter
--- OUTSIDE RECORDS SUMMARY | 2024-01-14 21:26 | External Medical Summary | Summary of Care ---
Author Name Unknown Organization [facility] Address [address] [facility] [address] Phone [phone] Care Team Providers Care Terrazzo Tile Setter Name Role Phone Marcial Burkett MD Primary Care Provider [phone] [phone] Reason for Visit * Reason Comments Diabetes Follow-Up Dosage Adjustment In Person (Anticoag Cl inic) Encounter Details Date Type Department Care Team (Late st Contact Info) Description 10/13/2023 3:30 PM EST Office Visit Pharmacy, [facility] [address] [place] [address] Pharmacist1, [facility] 200 [facility] [place] [address] Type 2 diabetes mellitus with hemoglobin A1c goal of less than 8.0% ([facility])* Allergies No known active allergiesdocumented as of [...] of this encounter Progress Notes * Vinny Samson RPh - 10/13/2023 3:26 PM EST Medication Therapy Disease Management Clinic - Diabetes Management Progress Note Gaudencio Li, identified by name and date of , is a 63 year old male being seen for diabetes management/education. Patient presents for return diabetic visit. DIABETES: Current diabetic medications: RESTART: Jardiance 10mg daily RESTART: Trulicity 3mg weekly Medication Injection Site: Abdomen Lifestyle: Diet: unchanged History of Treatment Barriers: Lifestyle: None Therapy considerations: Renal Function Medication: None Glucose Review/SMBG: No readings to appointment. Lost meter. I gave him another Verio meter to use Hypoglycemia: Does your blood sugar go below 70 mg/dL? No Hyperglycemia symptoms present: polyurea, polydipsia, fatigue, blurry vision Goal <8 Recent Labs Units 08/24/23 1715 11/27/16 0835 HEMOGLOBIN A1C - [facility] % 12.5* 10.5* Recent Labs Units 08/24/23 1715 [...] Patient on ACEi/ARB: yes, Lisinopril 10mg daily (started 08/25/23) BP Readings from Last 3 Encounters: 08/24/23 146/88 Blood pressure at goal: yes HYPERLIPIDEMIA: Patient is taking moderate or high intensity statin: yes, Atorvastatin 40mg daily (started 08/25/23) HEALTH MAINTENANCE REVIEW: Health Maintenance Due Topic [...] shot) (1) 07/23/2023 COVID-19 Vaccine (3 - 2022- season) 2023 *BASELINE EKG FOR HTN Never done ASSESSMENT & PLAN: ICD-10-CM 1. Type 2 diabetes mellitus with hemoglobin A1c goal of less than 8.0% (HCC) E11.9 BG Readings - Blood sugars not available. Will start testing today Medications - Reviewed current regimen, patient is adherent to regimen. Diet, Exercise, Lifestyle - No significant lifestyle changes since last visit. Discussed with patient today. Patient is agreeable to SMBG 1-2 time(s) daily. Patient aware to contact clinic if any hypoglycemia before next visit. MEDICATION CHANGES: no change Diabetic Medications: Jardiance 10mg daily Trulicity 3mg weekly HEALTH MAINTENANCE INTERVENTIONS: Labs: Ordered & Scheduled: Urine Microalbumin Immunizations: Needs all of his vaccines. Foot Exam: Complete with next PCP visit on 11/30/23 Eye Exam: needs completed Annual Wellness Visit: N/A FOLLOW UP: Return to clinic in 7 weeks 12/01/2023 Vinny Marquez RPh, HERMELINDOE Clinical Pharmacist - Croze Machine Operator Medication Therapy Management Clinic 10/13/2023, 3:27 PM documented in this encounter Plan of Treatment Upcoming Encounters Date Type Department Care Team (Late st Contact Info) Description 10/19/2023 2:30 PM EST Office Visit [facility] Eye [facility] [address] [place] [address] Ayan Christina MD [address] [place] [address] 11/02/2023 4:00 PM EST Cardiac Studies Cardiac Studies, [facility] [address] [facility] [place] [address] 11/30/2023 4:20 PM EST Office Visit Family Practice [facility] 132 [facility] [place] [address] Marcial Burkett MD 132 [facility] [place] [address] 12/01/2023 3:30 PM EST Office Visit Pharmacy, [facility] [address] [facility] [place] [address] Pharmacist1, [facility] [address] [facility] [place] [address] 10/17/2024 2:45 PM EST Office Visit Ophthalmology, [place] [address] [place] [address] Hakan Celis MD [address] [place] [address] Health Maintenance Due Date Last Done Comments [...] HbA1c 02/23/2024 08/24/2023, 11/27/2016 GFR 08/24/2024 08/24/2023, 0 04/2017, 04/27/2012 Diabetic Eye Exam 10/07/2024 10/07/2023, 10/07/2023 Lipid Panel 08/24/2028 08/24/2023, 0 04/2017, 11/27/2016, Additional history exists GARDASIL-HPV IMMUNIZATION [...] goal of less than 8.0% (HCC)- Primary documented in this encounter Care Teams Terrazzo Tile Setter Relationship Specialty Start Date End Date Marcial Burkett MD [address] [place] [address] PCP - General Family Medicine 08/24/23 documented as of this encounter
--- OUTSIDE RECORDS SUMMARY | 2024-01-14 21:26 | External Medical Summary | Summary of Care ---
Author Name Unknown Organization [facility] Address [address] [place] [address] Phone [phone] Care Team Providers Care Chimney Mechanic Name Role Phone Marcial Burkett MD Primary Care Provider [phone] Reason for Referral * Evaluate & Treat - Unlimited Visits (Within 10 days (routine)) - Authorized Specialty Diagnoses / Procedures Referred By Contac t Referred To Contact Pharmacist / Pharmacy Diagnoses Type 2 diabetes mellitus with hemoglobin A1c goal of less than 8.0% ([facility]) Marcial Burkett MD [address] [place] [address] Referral ID Status Reason Start Date Expiration Date Visits Requested Visits Authorized [id number] Authorized Specialty Services Required 08/25/2023 99 99 Question Answer Referral Priority Within 10 days (routine) Department: Primary Care Reason for Referral: DM Target A1c: < 8 Comments Pharmacist Medication Therapy Management: Minimum frequency patient should be seen in person for medication management: as appropriate per clinical condition and patient status By my signature, I understand that my patient Gaudencio Li will have his medication therapy managed by the [facility] Medication Therapy Disease Management Clinic ([facility]) per established policies, procedures, and protocols. I also certify that this referral may serve as an initiation of service for the management of drug therapy in the above noted patient. [facility] providers will be responsible for scheduling patient visits, obtaining appropriate laboratory studies, and adjusting medication management therapy per patient's need, in addition to those roles spelled out in the clinic policy, procedures, and drug management protocols. I understand that the service provided by the [facility] Clinic is voluntary and have informed patient that they can refuse the service at their discretion. I am aware that the [facility] will provide me with a copy of the patient encounter via my [employer]. I authorize the [facility] to carry out these activities on my behalf. I consider this program to be a necessary part of the patient's medical care. Marcial Burkett MD Encounter Details Date Type Department Care Team Description 08/25/2023 Telephone Family Practice [facility] [address] [place] [address] Marcial Burkett MD [address] [place] [address] Allergies No known active allergiesdocumented as of [...] encounter Miscellaneous Notes * Telephone Encounter - DOMINGO Bartlett - 08/25/2023 1:55 PM EDT Patient calling back, he is aware of the message below and the prescriptions have been called in. He was asking about the diabetes management. I explained to what it was and transferred him to [facility] clinic to get scheduled. * Telephone Encounter - Marcial Burkett MD - 08/25/2023 8:03 AM EDT Patient is on Trulicity and Jardiance and still has an A1c of 12.5%. MT referral in. Also let him know I sent in two new medications for him to start. One is for blood pressure and will help his kidney function, the other is cholesterol. They will be at the pharmacy today. documented in this encounter Plan of Treatment Upcoming Encounters Date Type Specialty Care Team Description 09/17/2023 Office Visit Pharmacy Pharmacist1, [facility] [address] [facility] [place], [place] [address] 11/02/2023 Cardiac Studies Cardiac Studies 11/30/2023 Office Visit Family Medicine Marcial Burkett MD [address] [place] [address] Scheduled Referrals Name Type Priority Associated Diagnoses Orde r Schedule PHARMACIST MEDS THERAPY MGMT REFERRAL OP Referral Within 10 days (routine) Type 2 diabetes mellitus with hemoglobin A1c goal of less than 8.0% (HCC) Ordered: 08/25/2023 Health Maintenance Due Date Last Done Comments [...] Primary documented in this encounter Care Teams Chimney Mechanic Relationship Specialty Start Date End Date Marcial Burkett MD [address] [place] [address] PCP - General Family Medicine 08/24/23 documented as of this encounter
--- OUTSIDE RECORDS SUMMARY | 2024-01-14 21:26 | External Medical Summary | Summary of Care ---
Author Name Unknown Organization [facility] Address [address] [place] [address] Phone [phone] Care Team Providers Care Offshoring Manager Name Role Phone Marcial Burkett MD Primary Care Provider [phone] Reason for Visit * Reason Comments Diabetes Follow-Up Dosage Adjustment In Person (Anticoag Cl inic) Diabetes Education * Evaluate & Treat - Unlimited Visits (Within 10 days (routine)) - Authorized Specialty Diagnoses / Procedures Referred By Contac t Referred To Contact Pharmacist / Pharmacy Diagnoses Type 2 diabetes mellitus with hemoglobin A1c goal of less than 8.0% (HCC) Marcial Burkett MD [address] [place] [address] Referral ID Status Reason Start Date Expiration Date Visits Requested Visits Authorized [id number] Authorized Specialty Services Required 08/25/2023 99 99 Encounter Details Date Type Department Care Team (Late st Contact Info) Description 09/17/2023 3:20 PM EDT Office Visit Pharmacy, [facility] [address] [place] [address] Pharmacist1, [facility] 200 [facility] [place] [address] Type 2 diabetes mellitus with hemoglobin A1c goal of less than 8.0% ([facility])*; Dyslipidemia Allergies No known active allergiesdocumented as of this encounter (statuses as of 09/17/2023) Medications Medication Sig Dispensed Refills Start Date [...] a week. 6 mL 4 09/17/2023 Active Trulicity 3 MG/0.5ML Subcutaneous Solution Pen-injector (Dulaglutide) Inject 3 mg under the skin once a week. 0 09/17/2023 Discontinued (Refill) Empagliflozin 10 MG Oral Tablet (Jardiance) Take 1 Tablet by mouth in the morning. 0 09/17/2023 Discontinued (Refill) documented as of this encounter (statuses as of 09/17/2023) Active Problems Problem Noted Date Diagnosed Date Morbid obesity 08/24/2023 Type 2 diabetes mellitus wit h hemoglobin A1c goal of less than 8.0% 08/23/2023 Dyslipidemia 08/23/2023 HTN, goal below 130/80 08/23/2023 documented as of this encounter (statuses as of 09/17/2023) Social History Tobacco Use Types Packs/Day Years [...] as of this encounter Progress Notes * AlmaVniny Andres, [facility] - 09/17/2023 3:08 PM EDT Medication Therapy Disease Management Clinic - Diabetes Management Progress Note Gaudencio Li, identified by name and date of , is a 63 year old male being seen for diabetes management/education. Patient presents for initial diabetic visit. Past Medical History: Diagnosis Date Dyslipidemia 08/23/2023 HTN, goal below 130/80 08/23/2023 Morbid obesity (HCC) 08/24/2023 Diagnosis: Type 2 Age of diabetes diagnosis: ~58 Family history of diabetes: mother, sister Microvascular complications: nephropathy Macrovascular complications: hypertension dyslipidemia DIABETES: Current diabetic medications: Jardiance 10mg daily Trulicity 3mg weekly Medication Injection Site: Thigh Lifestyle: Diet: Comprehensive Diet Review Meal #1: 8AM: coffee w/ sweetcreamer; leftovers from dinner; cheese on a roll Meal #2: skips Meal #3: 4PM: steak or pasta Snacks: leftovers in middle of night Beverages: coffee w/sweet creamer, 1 can soda, water, sweetened iced tea Activity: none, work activity Alcohol: rarely; beer if thirsty Tobacco Use: Never History of Treatment Barriers: Lifestyle: None Therapy considerations: Renal Function Medication: none Glucose Review/SMBG: Not testing Hypoglycemia: Does your blood sugar go below [...] Screening Never done HIV Screening Never done DIABETES-EYE EXAM Never done Diabetic Foot Exam Never done [...] BG Readings - Blood sugars not available. Does not have a meter. Gave a One Touch Verio meter and ordered testing supplies. Medications - Reviewed current regimen, patient is not adherent to regimen. [place]. Ordered medications from [facility]. Diet, Exercise, Lifestyle - see above - diet . Discussed with patient today - needs to stop drinking soda and sweetened beverages. Lengthy discussion on diabetes pathophysiology, role of diet and macronutrients on blood glucose control and benefits of exercise. Taught patient what A1C means. Taught patient plate method for eating. Explained how having proteinwith meal will help to slow carb absorption. Taught patient how medications work. Taught patient rule of 15s for treating hypoglycemia. Patient is agreeable to SMBG 1 time(s) daily. Patient aware to contact clinic if any hypoglycemia before next visit. MEDICATION CHANGES: no change Diabetic Medications: RESTART: Jardiance 10mg daily RESTART: Trulicity 3mg weekly HEALTH MAINTENANCE INTERVENTIONS: Labs: Ordered & Scheduled: Urine Microalbumin Immunizations: refused flu vaccine today. Needs all of his vaccines. Foot Exam: Complete with next PCP visit on 11/30/23 Eye Exam: needs completed Annual Wellness Visit: N/A FOLLOW UP: Return to clinic in 4 weeks 10/13/2023 Vinny Marquez RPh, ELVIN Clinical Pharmacist - Occasional Babysitter Medication Therapy Management Clinic 09/17/2023, 3:08 PM documented in this encounter Plan of Treatment Upcoming Encounters Date Type Department Care Team (Late st Contact Info) Description 10/07/2023 1:00 PM EST Office Visit Ophthalmology, [place] [address] [place] [address] Hakan Celis MD [address] [facility] [place] [address] 10/13/2023 3:30 PM EST Office Visit Pharmacy, [facility] 200 [facility] [place] [address] Pharmacist1, [facility] 200 [facility] [place] [address] 10/19/2023 2:30 PM EST Office Visit [facility] Eye [address] [address] Ayan Christina MD 16 [place] [address] 11/02/2023 4:00 PM EST Cardiac Studies Cardiac Studies, [facility] 132 [facility] [place] [address] 11/30/2023 4:20 PM EST Office Visit Family Practice [facility] [address] [place] [address] Marcial Burkett MD [address] [place] [address] Health Maintenance Due Date Last Done Comments [...] hyperlipidemia documented in this encounter Care Teams Offshoring Manager Relationship Specialty Start Date End Date Marcial Burkett MD [address] [place] [address] PCP - General Family Medicine 08/24/23 documented as of this encounter
--- OUTSIDE RECORDS SUMMARY | 2024-01-14 21:26 | External Medical Summary | Summary of Care ---
Author Name Unknown Organization [facility] Address [address] [place] [address] Phone [phone] Care Team Providers Care Instrument Panel Assembler Name Role Phone Marcial Burkett MD Primary Care Provider [phone] Reason for Visit * Reason Comments NEW PATIENT Diabetic Exam * Evaluate & Treat - Unlimited Visits (Within 10 days (routine)) - Authorized Specialty Diagnoses / Procedures Referred By Contac t Referred To Contact Ophthalmology Diagnoses Change in vision Marcial Burkett MD [address] [place] [address] Referral ID Status Reason Start Date Expiration Date Visits Requested Visits Authorized [id number] Authorized Specialty Services Required 08/24/2023 999 999 Encounter Details Date Type Department Care Team (Late st Contact Info) Description 10/07/2023 1:00 PM EST Office Visit Ophthalmology, [place] [address] [place] [address] Hakan Celis MD [address] [place] [address] Encounter for diabetes type 2 eye exam (HCC)*; Type 2 diabetes mellitus with hemoglobin A1c goal of less than 8.0% (HCC); Nuclear senile cataract of both eyes Allergies No known active allergiesdocumented as of this encounter (statuses as of 10/07/2023) Medications Medication Sig Dispensed Refills Start Date [...] DX: E11.9 100 Strip 3 09/17/2023 Active HarQenTouch Delica Lancets 33GIndications:Type 2 diabetes mellitus with [...] as of this encounter (statuses as of 10/07/2023) Active Problems Problem Noted Date Diagnosed Date Morbid obesity 08/24/2023 Type 2 diabetes mellitus wit h hemoglobin A1c goal of less than 8.0% 08/23/2023 Dyslipidemia 08/23/2023 HTN, goal below 130/80 08/23/2023 documented as of this encounter (statuses as of 10/07/2023) Social History Tobacco Use Types Packs/Day Years [...] as of this encounter Progress Notes * Hakan Celis MD - 10/07/2023 1:24 PM EST [facility] DEPARTMENT OF OPHTHALMOLOGY DIABETIC EYE EXAM PATIENT NAME: Gaudencio Li (63 year old male) PRIMARY CARE PHYSICIAN: Marcial Burkett MD CC: here for diabetic eye exam HPI: DM for <1 years Last FBS: ? Lab Results Component Value Date/Time HEMOGLOBIN A1C - [facility] 12.5 (H) 08/24/2023 05:15 PM HEMOGLOBIN A1C - [facility] 10.5 (H) 11/27/2016 08:35 AM POH: see below Past Medical History: Diagnosis Date Dyslipidemia 08/23/2023 HTN, goal below 130/80 08/23/2023 Morbid obesity (HCC) 08/24/2023 Type 2 diabetes mellitus with hemoglobin A1c goal of less than 8.0% (HCC) 08/23/2023 No past surgical history on file. MEDS: Current Outpatient Medications Medication Sig Dispense Refill Atorvastatin Calcium 40 MG Oral Tablet (Lipitor) Take 1 Tablet by mouth in the morning. 90 Tablet 3 Lisinopril 10 MG Oral Tablet (Prinivil) Take 1 Tablet by mouth in the morning. 90 Tablet 3 OneTouch Verio In Vitro Strip (Glucose Blood) Use to test blood glucose once daily. DX: E11.9 100 Strip 3 OneTouch Delica Lancets 33G Use to test blood glucose once daily. DX: E11.9 100 Each 3 OneTouch Verio Flex System w/Device Kit Use as directed. Empagliflozin 10 MG Oral Tablet (Jardiance) Take 1 Tablet by mouth in the morning. 90 Tablet 3 Trulicity 3 MG/0.5ML Subcutaneous Solution Pen-injector (Dulaglutide) Inject 3 mg under the skin once a week. 6 mL 4 No current facility-administered medications for this visit. ALLERGIES: Review of patient's allergies indicates: No Known Allergies EXAM VA sc OD (D) 20/40-1; VA sc OD (N) 20/200 VA sc OS (D) 20/30; VA sc OS (N) 20/200 Auto OD: sph -0.50 cyl +1.50 axis 110 Auto OS: sph +0.00 cyl +1.50 axis 83 EXTERNAL: CVF: Full OU Lids: WNL Conjunctiva: WNL OU Pupils: PERRL; no APD EOM: Full SLIT LAMP Cornea: clear OU Tear Film: WNL OU A/C: D/Q OU Lens: 1+ NS OD; 1+ NS OS Iris: WNL OU TA OD: 18; OS: 18; 1:24 PM DILATED EXAM: Dilated with Mydriacyl 1% and Mydfrin 2.5%; advised re driving Lens used: 28 D and 90 D Vitreous: clear OU C/D: 0.6 OD; 0.6 OS Macula: WNL OD; WNL OS Periphery: WNL OD; WNL OS ASSESSMENT/PLAN DM 2 - not controlled - no diabetic retinopathy --pt advised to tightly control blood sugars Cataracts OU - watch Cupping - IOP OK - watch Presbyopia - check for glasses when A1C<7.5 RTC: 1 y Hakan Celis MD 10/07/2023 1:24 PM documented in this encounter Nursing Notes * Binta Porter COA - 10/07/2023 1:05 PM EST Pt presents to the clinic today as a new patient to establish care and for a diabetic dilated exam. VA sc OD (D) 20/40-1; VA sc OD (N) 20/200 VA sc OS (D) 20/30; VA sc OS (N) 20/200 Auto OD: sph -0.50 cyl +1.50 axis 110 Auto OS: sph +0.00 cyl +1.50 axis 83 Do you check your sugar daily? NO. Last Hemoglobin A1C: Lab Results Component Value Date/Time HGBA1C 12.5 (H) 08/24/2023 05:15 PM HGBA1C 10.5 (H) 11/27/2016 08:35 AM documented in this encounter Plan of Treatment Upcoming Encounters Date Type Department Care Team (Late st Contact Info) Description 10/13/2023 3:30 PM EST Office Visit Pharmacy, [facility] 200 [facility] [place] [address] Pharmacist1, [facility] [address] [facility] [place] [address] 10/19/2023 2:30 PM EST Office Visit [facility] [address] [place] [address] Ayan Christina MD [address] [place] [address] 11/02/2023 4:00 PM EST Cardiac Studies Cardiac Studies, [facility] [address] [facility] [place] [address] 11/30/2023 4:20 PM EST Office Visit Family Practice [facility] [address] [place] [address] Marcial Burkett MD 132 [facility] [place] [address] 10/17/2024 2:45 PM EST Office Visit Ophthalmology, [place] [address] [place] [address] Hakan Celis MD [address] [place] [address] Health Maintenance Due Date Last Done Comments [...] as of this encounter Visit Diagnoses Diagnosis Encounter for diabetes type 2 eye exam (HCC)- Primary Type II or unspecified type diabetes mellitus without mention of complication, not stated as uncontrolled Type 2 diabetes mellitus with hemoglobin A1c goal of less than 8.0% (HCC) Nuclear senile cataract of both eyes documented in this encounter Care Teams Instrument Panel Assembler Relationship Specialty Start Date End Date Marcial Burkett MD [address] [place] [address] PCP - General Family Medicine 08/24/23 documented as of this encounter
--- OUTSIDE RECORDS SUMMARY | 2024-01-14 21:27 | External Medical Summary ---
Author Name Unknown Address Unknown Organization K01:[facility] [address] [facility] [address] Laboratory Report Ordering Provider Test Date Status DARYA BRODY 08/24/2023 17:15:11 Final Observation Date Value Abnormality Reference (Units ) Status SYNC LEUKOCYTES IN BLOOD BY AUTOMATED COUNT 08/24/2023 17:15:11 6.30 4.00-10.80 (K/uL) Final Segs 08/24/2023 17:15:11 63.5 40.0-75.0 (%) Final Lymphs % 08/24/2023 17:15:11 25.6 18.0-42.0 (%) Final Monos 08/24/2023 17:15:11 8.7 1.0-11.0 (%) Final Eosinophils 08/24/2023 17:15:11 1.0 0.0-6.0 (%) Final Basos 08/24/2023 17:15:11 0.6 0.0-2.0 (%) Final Immature Granulocyte, Percent 08/24/2023 17:15:11 0.6 0.0-2.0 (%) Final Absolute Segs 08/24/2023 17:15:11 4.00 1.80-7.70 (K/uL) Final Lymphs, absolute 08/24/2023 17:15:11 1.61 1.00-4.80 (K/ul) Final Monos, Abs 08/24/2023 17:15:11 0.55 0.00-1.10 (K/uL) Final Eos, Abs 08/24/2023 17:15:11 0.06 0.00-0.70 (K/uL) Final Basos, Abs 08/24/2023 17:15:11 0.04 0.00-0.20 (K/uL) Final Immature Granulocytes, Number 08/24/2023 17:15:11 0.04 0.00-0.20 (K/uL) Final Performing Location [facility] [place] [facility] [place] [address]
--- OUTSIDE RECORDS SUMMARY | 2024-01-14 21:27 | External Medical Summary ---
Author Name Unknown Address Unknown Organization K01:LABORATORY [facility] – [place] - [address] [facility] [address] Laboratory Report Ordering Provider Test Date Status DARYA BRODY 08/24/2023 17:15:11 Final Observation Date Value Abnormality Reference (Units ) Status BUN 08/24/2023 17:15:11 17 6-20 (mg/dL) Final Creatinine 08/24/2023 17:15:11 1.1 0.6-1.2 (mg/dL) Final Glomerular filtration rate/1.73 sq M.predicted [Volume Rate/Area] in Serum, Plasma or Blood by Creatinine-based formula (CKD-EPI) 08/24/2023 17:15:11 76 >=60 (mL/min) Final eGFR is calculated based on the CKD-EPI 2020 equation SODIUM 08/24/2023 17:15:11 133 Below low normal 135 -146 (mmol/L) Final Potassium 08/24/2023 17:15:11 4.5 3.5-5.1 (m mol/L) Final Cl 08/24/2023 17:15:11 97 Below low normal 98- 107 (mmol/L) Final CO2 08/24/2023 17:15:11 26 22-32 (mmo l/L) Final Anion gap 08/24/2023 17:15:11 10 7-15 (mmol /L) Final Glucose 08/24/2023 17:15:11 311 Above high normal 70 -120 (mg/dL) Final Albumin 08/24/2023 17:15:11 4.1 3.8-5.0 (g /dL) Final AST (Aspartate aminotransferase) 08/24/2023 17:15:11 15 10-50 (U/L) Fin al Alk Phos 08/24/2023 17:15:11 75 35-130 (U/ L) Final Bilirubin, Total 08/24/2023 17:15:11 0.2 <=1 .2 (mg/dL) Final Calcium 08/24/2023 17:15:11 9.3 8.4-10.2 ( mg/dL) Final Protein 08/24/2023 17:15:11 7.2 6.0-8.3 (g /dL) Final ALT (Alanine aminotransferase) 08/24/2023 17:15:11 29 10-50 (U/L) Javed dacosta Performing Location LAB[facility]ATORY [facility] – [place] - [address] [facility] [address]
--- OUTSIDE RECORDS SUMMARY | 2024-01-14 21:27 | External Medical Summary ---
Author Name Unknown Address Unknown Organization K01:LAB[facility]ATORY [facility] - [address] [facility] [address] Laboratory Report Ordering Provider Test Date Status DARYA BRODY 08/24/2023 17:15:11 Final Observation Date Value Abnormality Reference (Units ) Status Triglyceride 08/24/2023 17:15:11 262 Above high normal <=174 (mg/dL) Final Triglyceride Reference Range s (mg/dL):
<150 Acceptable
150-174 Borderline high
175-499 High
>=500 Very high Cholesterol 08/24/2023 17:15:11 260 Above high normal <200 (mg/dL) Final Total Cholesterol Reference Ranges (mg/dL):
<200 Desirable
200-239 Borderline high
>=240 High HDL 08/24/2023 17:15:11 48 >39 (mg/dL ) Final HDL Cholesterol Reference Ra nges (mg/dL):
>=60 High (Desirable)
<50 Low (Undesirable) For Females
<40 Low (Undesirable) For Males NON-HDL CHOLESTEROL 08/24/2023 17:15:11 212 Above high normal <=159 (mg/dL) Final Non-HDL Cholesterol Referenc e Range (mg/dL):
<100 Target level for high risk ASCVD patient
<130 Optimal for general population
130-159 Near optimal for general population
160-189 Borderline High
190-219 High
>=220 Very High LDL, (calculated) 08/24/2023 17:15:11 160 Above high n ormal <=129 (mg/dL) Final LDL Cholesterol Reference Ra nges (mg/dL):
<70 Target level for high risk ASCVD patient
<100 Optimal for general population
100-129 Near optimal for general population
130-159 Borderline high
160-189 High
>=190 Very high Performing Location LAB[facility]ATORY [facility] [place] - [address] [facility] [address]
--- OUTSIDE RECORDS SUMMARY | 2024-01-14 21:27 | External Medical Summary ---
Author Name Unknown Address Unknown Organization K01:[facility] [place] [address] [facility] [address] Laboratory Report Ordering Provider Test Date Status RONNCLARADARYA 08/24/2023 17:15:11 Final Observation Date Value Abnormality Reference (Units ) Status HbA1C 08/24/2023 17:15:11 12.5 Above high normal 4. 0-5.6 (%) Final The use of HbA1c to monitor glycemic status is based on normal hemoglobin and HbA composition. This test should not be used in patients with abnormal hemoglobin that affects the half life of the red blood cell or the in vivo glycation rates. Glucose, estimated average 08/24/2023 17:15:11 312 Above high normal <126 (mg/dL) Javed dacosta Performing Location [facility] [place] - [address] [facility] [id number]
== END 2024-01-14 22:48 | disposition short-term general hospital (02) | DRG 871 ==
LOC: ED 15:14 → 2E 17:41